=== PATIENT | male | born 1970 | race Caucasian/White ===

== ENCOUNTER 2022-10-25 09:46 | Outpatient (AMB) | payer OTHER, SELFPAY ==
[2022-10-25 09:48] VITALS: BP 104/62; PULSE 72; O2SAT 96; BMI 34.8
--- NOTE | 2022-10-25 09:48 | A.OFFVIS_ITS ---
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 Patient states that he has dyspnea with minimal exertion, orthopnea, some lower extremity edema, but no paroxysmal nocturnal dyspnea. Patient denies prior personal or family history of lying disease. He has no history of exposure to industrial dusts. [facility] Social History (Updated 10/25/22 @ 09:51 by Mahsa Lucas Charles) Patient Tobacco Use Status: Never used Tobacco Review of Systems Const Denies daytime sleepiness, Denies excessive sweating, Denies fatigue, Denies fever(s), Denies lethargy, Denies malaise, Denies night sweats, Denies snoring and Denies weight loss Eyes Denies blurry vision and Denies itchy eyes ENT Denies nasal congestion, Denies post nasal drip, Denies sinus pain, Denies sinus pressure and Denies other ( Thrush) Card Denies chest pain, Reports pedal edema, Denies dyspnea, Reports dyspnea on exertion, Reports orthopnea and Denies paroxysmal nocturnal dyspnea Resp Denies cough, Denies hemoptysis, Denies excessive phlegm production, Denies dyspnea, Reports dyspnea on exertion, Denies snoring and Denies wheezing GI Denies abdominal pain and Denies heartburn Musc Denies myalgias, Denies arthralgias and Denies joint swelling Skin/Breast Denies rash Neuro Denies memory loss and Denies seizure-like activity Psych Denies abnormal sleep pattern, Denies anxiety and Denies memory loss Endo Denies excessive sweating, Denies fatigue and Denies heat intolerance Say/Lymph Denies easy bruising Aller/Immun Denies itchy eyes, Denies seasonal rhinorrhea and Denies wheezing Physical Exam Vital Signs: Last Vital Signs Pulse 72 10/25/22 09:48 BP 104/62 10/25/22 09:48 Pulse Ox 96 10/25/22 09:48 Oxygen Delivery Method Room Air 10/25/22 09:48 BMI result Body Mass Index 34.8 Const General: no acute distress and alert Nutritional Appearance: obese Orientation/consciousness: Other orientation findings ( oriented) HEENT Head: Yes atraumatic Eyes General: appearance normal, both eyes and all related structures Sclerae: sclerae normal EOM: EOMs intact bilaterally Neck Neck: Yes supple Lymphatic: no lymphadenopathy noted Resp Effort & Inspection: normal respiratory effort and no use of accessory muscles Auscultation: clear to auscultation bilaterally Cardio Rate: regular rate Rhythm: regular rhythm Heart sounds: no gallops, no murmurs and no rubs Skin General skin exam: other ( warm) Extrem General: No clubbing, No cyanosis and Yes edema (1+ bilateral) Assessment & Plan Assessment & Plan (1) DO (dyspnea on exertion): Code(s): R06.09 - Other forms of dyspnea Plan: Unclear etiology, likely multifactorial with contribution from underlying cardiac, and deconditioning, and possible pulmonary component. Will obtain records from [facility] of prior testing. (2) COPD (chronic obstructive pulmonary disease): Code(s): J44.9 - Chronic obstructive pulmonary disease, unspecified Plan: Considering underlying smoking history may have underlying COPD. Will obtain full PFT. Low concern for possible pulmonary fibrosis as no note made on the most recent CT chest from 08/2022. Orders: Orders PFT pulmonary function test Today R06.09 - Other forms of dyspnea Coding Level of Care Code New Pt Level 4 (98265) Diagnoses DO (dyspnea on exertion) R06.09 COPD (chronic obstructive pulmonary disease) J44.9
== END 2022-10-25 10:16 | disposition home or self-care (01) ==
PROVIDERS: PCP Pediatrics; Visit Provider Internal Medicine Pulmonary Disease
DX: R06.09 Other forms of dyspnea (principal); J44.9 Chronic obstructive pulmonary disease, unspecified
CPT/HCPCS: 99204

== ENCOUNTER → 2022-10-25 09:46 | Outpatient (BNVA) | payer OTHER, SELFPAY | PROVIDERS: PCP Pediatrics; Visit Provider Internal Medicine Pulmonary Disease | DX: J44.9 Chronic obstructive pulmonary disease, unspecified (principal); R06.09 Other forms of dyspnea; Z87.891 Personal history of nicotine dependence | CPT/HCPCS: 99202 ==

== ENCOUNTER 2022-11-12 09:25 | Outpatient (REF) | payer OTHER, SELFPAY ==
--- NOTE | 2022-11-12 11:00 | PFT_ITS ---
Forced vital capacity 72%, FEV1 68%, FEV1/FVC ratio is 73. [id number] 65% and MVV 33%. Post bronchodilator therapy, there is no significant change. Total lung capacity 87%. Residual volume 139%. Diffusion capacity 59%. CONCLUSION: There is possible mild obstructive airway disorder with no significant response to bronchodilator therapy. Increased residual volume is suggestive of air trapping. Decreased diffusion capacity may be secondary to chronic obstructive pulmonary disease/pulmonary emphysema. There is marked decrease in MVV. This is most likely effort related and due to technical reason. Clinical correlation recommended. Wayne Hankins MD MSB/MODL / [id number]
== END 2022-11-12 09:26 | disposition home or self-care (01) ==
LOC: HO.RESP 09:25
PROVIDERS: PCP Pediatrics; Visit Provider Internal Medicine Pulmonary Disease
DX: R06.09 Other forms of dyspnea (principal)
CPT/HCPCS: 94010; 94727; 94729; 99212

== ENCOUNTER 2022-11-12 10:14 | Outpatient (AMB) | payer OTHER, SELFPAY ==
[2022-11-12 10:25] VITALS: BP 116/67; PULSE 74; O2SAT 98; BMI 34.8
--- NOTE | 2022-11-12 10:25 | A.OFFVIS_ITS ---
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 Patient states that he has dyspnea with minimal exertion, orthopnea, some lower extremity edema, but no paroxysmal nocturnal dyspnea. Patient denies prior personal or family history of lying disease. He has no history of exposure to industrial dusts. After the last office visit patient has completed his pulmonary function testing that shows decrease in diffusion capacity without restrictive pulmonary physiology. He denies any pulmonary related concerns at this time. [facility] Social History Patient Tobacco Use Status: Never used Tobacco Review of Systems Const Denies daytime sleepiness, Denies excessive sweating, Denies fatigue, Denies fever(s), Denies lethargy, Denies malaise, Denies night sweats, Denies snoring and Denies weight loss Eyes Denies blurry vision and Denies itchy eyes ENT Denies nasal congestion, Denies post nasal drip, Denies sinus pain, Denies sinus pressure and Denies other ( Thrush) Card Denies chest pain, Denies pedal edema, Denies dyspnea, Denies orthopnea and Denies paroxysmal nocturnal dyspnea Resp Denies cough, Denies hemoptysis, Denies excessive phlegm production, Denies dyspnea, Denies snoring and Denies wheezing GI Denies abdominal pain and Denies heartburn Musc Denies myalgias, Denies arthralgias and Denies joint swelling Skin/Breast Denies rash Neuro Denies memory loss and Denies seizure-like activity Psych Denies abnormal sleep pattern, Denies anxiety and Denies memory loss Endo Denies excessive sweating, Denies fatigue and Denies heat intolerance Say/Lymph Denies easy bruising Aller/Immun Denies itchy eyes, Denies seasonal rhinorrhea and Denies wheezing Physical Exam Vital Signs: Last Vital Signs Pulse 74 11/12/22 10:25 BP 116/67 11/12/22 10:25 Pulse Ox 98 11/12/22 10:25 Oxygen Delivery Method Room Air 11/12/22 10:25 BMI result Body Mass Index 34.8 Const General: no acute distress and alert Nutritional Appearance: obese Orientation/consciousness: Other orientation findings ( oriented) HEENT Head: Yes atraumatic Eyes General: appearance normal, both eyes and all related structures Sclerae: sclerae normal EOM: EOMs intact bilaterally Neck Neck: Yes supple Lymphatic: no lymphadenopathy noted Resp Effort & Inspection: normal respiratory effort and no use of accessory muscles Auscultation: clear to auscultation bilaterally Cardio Rate: regular rate Rhythm: regular rhythm Heart sounds: no gallops, no murmurs and no rubs Skin General skin exam: other ( warm) Extrem General: No clubbing, No cyanosis and No edema Assessment & Plan Assessment & Plan (1) Pulmonary emphysema: Code(s): J43.9 - Emphysema, unspecified Plan: Results of pulmonary function test reviewed, pulmonary emphysema without fixed obstruction. Will start on empiric Anoro. Medications: New Anoro Ellipta 62.5-25 mcg/actuation (umeclidinium-vilanterol) 1 inh inhalation DAILY 30 days 1 ea 6RF NS Coding Level of Care Code Est Pt Level 3 (23120) Diagnoses Pulmonary emphysema J43.9
== END 2022-11-12 11:01 | disposition home or self-care (01) ==
PROVIDERS: PCP Pediatrics; Visit Provider Internal Medicine Pulmonary Disease
DX: J43.9 Emphysema, unspecified (principal)
CPT/HCPCS: 94060; 94727; 94729; 99213

== ENCOUNTER 2024-11-07 10:20 | Outpatient (AMB) | payer OTHER, SELFPAY ==
[2024-11-07 10:22] VITALS: BP 127/62; PULSE 87; O2SAT 94; BMI 31.1
--- NOTE | 2024-11-07 10:22 | MHC.OFFVIS ---
Vital Signs 11/07/24 10:22 Height 6 ft 6 in Weight 269 lb BMI 31.1 BP 127/62 Blood Pressure Location Rt brachial Position Sitting Pulse 87 Pulse Source Pulse Oximeter Pulse Oximetry (%) 94 Oxygen Delivery Method Room Air Intake Visit Reasons: COPD Allergies amoxicillin (From AUGMENTIN) Allergy (Unknown, Verified 11/07/24 10:29) HIVES clavulanic acid (From AUGMENTIN) Allergy (Unknown, Verified 11/07/24 10:29) HIVES HPI HPI COPD: Details: 54-year-old gentleman, former approximately 20 pack-year smoker, quit 2017 with underlying history of Loyes-Diets syndrome (Marfan's variant) status post repair of aortic aneurysm and replacement of aortic valve in 2017, also AFib on amiodarone previously seen for pulmonary component to his dyspnea, lost to follow-up lost to use, now returns complain worsening dyspnea on exertion associated with chest pressure. Patient has been using Anoro and Combivent with reasonable control of his underlying COPD symptoms. [facility] Social History Patient Tobacco Use Status: Never used Tobacco Review of Systems Const Denies daytime sleepiness, Denies excessive sweating, Denies fatigue, Denies fever(s), Denies lethargy, Denies malaise, Denies night sweats, Denies snoring and Denies weight loss Eyes Denies blurry vision and Denies itchy eyes ENT Denies nasal congestion, Denies post nasal drip, Denies sinus pain, Denies sinus pressure and Denies other ( Thrush) Card Denies chest pain, Denies pedal edema, Denies dyspnea, Reports dyspnea on exertion, Denies orthopnea and Denies paroxysmal nocturnal dyspnea Resp Denies cough, Denies hemoptysis, Denies excessive phlegm production, Denies dyspnea, Reports dyspnea on exertion, Denies snoring and Denies wheezing GI Denies abdominal pain and Denies heartburn Musc Denies myalgias, Denies arthralgias and Denies joint swelling Skin/Breast Denies rash Neuro Denies memory loss and Denies seizure-like activity Psych Denies abnormal sleep pattern, Denies anxiety and Denies memory loss Endo Denies excessive sweating, Denies fatigue and Denies heat intolerance Say/Lymph Denies easy bruising Aller/Immun Denies itchy eyes, Denies seasonal rhinorrhea and Denies wheezing Physical Exam Vital Signs: Last Vital Signs Pulse 87 11/07/24 10:22 BP 127/62 11/07/24 10:22 Pulse Ox 94 11/07/24 10:22 Oxygen Delivery Method Room Air 11/07/24 10:22 BMI result Body Mass Index 31.1 Const General: no acute distress and alert Nutritional Appearance: not obese Orientation/consciousness: Other orientation findings ( oriented) HEENT Head: Yes atraumatic Eyes General: appearance normal, both eyes and all related structures Sclerae: sclerae normal EOM: EOMs intact bilaterally Neck Neck: Yes supple Lymphatic: no lymphadenopathy noted Resp Effort & Inspection: normal respiratory effort and no use of accessory muscles Auscultation: clear to auscultation bilaterally Cardio Rate: regular rate Rhythm: regular rhythm Heart sounds: no gallops, no murmurs and no rubs Skin General skin exam: other ( warm) Extrem General: No clubbing, No cyanosis and No edema Assessment & Plan Assessment & Plan (1) COPD (chronic obstructive pulmonary disease): Code(s): J44.9 - Chronic obstructive pulmonary disease, unspecified Category: Medical Plan: Controlled on current regimen of Anoro and Combivent. Continue current regimen. (2) DO (dyspnea on exertion): Code(s): R06.09 - Other forms of dyspnea Category: Medical Plan: Now appears to have cardiac component, will obtain 2D echocardiogram. Orders: Orders CA echo transthoracic complete Today R06.09 - Other forms of dyspnea Coding Level of Care Code Est Pt Level 4 (18190) Diagnoses COPD (chronic obstructive pulmonary disease) J44.9 DO (dyspnea on exertion) R06.09
== END 2024-11-07 10:49 | disposition home or self-care (01) ==
LOC: HO.HPS 10:21
PROVIDERS: PCP Pediatrics; Visit Provider Internal Medicine Pulmonary Disease
DX: J44.9 Chronic obstructive pulmonary disease, unspecified (principal); R06.09 Other forms of dyspnea
CPT/HCPCS: 99214

== ENCOUNTER → 2024-11-07 10:20 | Outpatient (BNVA) | payer OTHER, SELFPAY | PROVIDERS: PCP Pediatrics; Visit Provider Internal Medicine Pulmonary Disease | DX: J44.9 Chronic obstructive pulmonary disease, unspecified (principal); R06.09 Other forms of dyspnea; Q87.40 Marfan syndrome, unspecified | CPT/HCPCS: 99212 ==

== ENCOUNTER 2024-12-06 15:41 | Emergency (ER) | payer OTHER, SELFPAY ==
--- NOTE | 2024-12-06 | ECG_ITS ---
Test Reason : CP Blood Pressure : */* mmHG Vent. Rate : 72 BPM Atrial Rate : 72 BPM P-R Int : 170 ms QRS Dur : 92 ms QT Int : 406 ms P-R-T Axes : 55 36 52 degrees QTcB Int : 444 ms Sinus rhythm with Premature ventricular complexes Abnormal ECG When compared with ECG of 28-Oct-2016 12:34, Premature ventricular complexes are now Present Referred By: Generic ED Physician Electronically Signed By: TATE GRIMM MD
--- NOTE | ~2024-12-06 | XR_ITS ---
CLINICAL HISTORY: chest pain 1 view chest x-ray Comparison: None provided Findings: Two films were obtained. Hyperaerated lungs with crowding of the lung markings in the bilateral lower lobes can be seen with emphysema. No consolidation, pleural effusion or pneumothorax. Normal size heart. Median sternotomy. No acute fracture. IMPRESSION: No acute cardiopulmonary process. This document has been electronically signed by: Kaylah Yeh DO on 12/06/2024 17:35:51
[2024-12-06 15:54] VITALS: BP 132/74; PULSE 75; O2SAT 99
--- NOTE | 2024-12-06 16:07 | ED.CHESTPAIN ---
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 The pain was of gradual onset and started shortly after spending 2 days prior moving all of his home items from a [address] with his son. He denies feeling like he strained his muscles in any way as it does not hurt when he moves his arms in any way. He reports no association with food exertion or would positional changes. Reports having less exercise intolerance as he used to tolerate walking around the mall but now he can not. The pain does not wax and wane it is a constant ache. He denies any infectious symptoms such as fevers chills nasal congestion air hunger abdominal discomfort nausea or vomiting or diarrhea. He reports no changes to his appetite. He reports feeling under a great deal of stress due to his son moving to [place] and having to move twice in the last 8 months. His history of aortic valve replacement done at [facility] years ago. Patient uses a walker for long distance and a cane for short distances at baseline he denies any falls or trauma no paresthesias or weakness. He denies any associated back pain and has no symptoms. He does not feel dizzy or lightheaded. He is seen by Dr. Antony for pulmonology and was supposed to have a 3D echo done at outpatient this week but due to his car breaking down he was not able to go to it Dr. Tapia office called him back and told him to go to the ED. He does not feel like his inhaler helps. Denies wheezing or crushing pain. Last OV from Dr. Antony dated on 11/07/24. COPD controlled on Anoro and combivant. Thought potentially could be cardiac component to his DO and ordered the 2D echo. It has not been done yet. There are no prior ED visits as patient was established at [facility]. From [facility]: [facility] Cardiology record retrieved. Other PMH includes: Anxiety, ascending aortic aneurysm, atypical chest pain, CAD, chronic low back pain, dysphagia, GERD, heart murmur, history of kidney stones, HLD, hypertension, hypothyroidism, class 1 obesity, atrial septal defect, and spinal stenosis Meds: Anoro Ellipta 6.25 mcg per 25 mcg inhalation powder 1 puff daily, aspirin 81 mg tablet daily, gabapentin 300 mg capsule 1 capsule in the morning when capsular the afternoon acute 2 capsules at bedtime, enter gross 0.005% ophthalmic solution 1 drop each eye daily at bedtime, levothyroxine 175 mcg by mouth daily, Lipitor 80 mg tablet nightly, metoprolol 25 mg tablet extended release daily, pantoprazole 40 mg tablet daily, riboflavin 200 mg 2 times per day, sertraline 100 mg tablet daily, topiramate 50 mg tablet 1 in the morning and 2 tablets at night, vitamin D3 daily, warfarin 2.5 mg - 5mg daily depending on coumadin clinic ( pt reports he checks himself at home now) Had ablation for AFib. Is no longer on amiordarone. Allergies: Augmentin Imagin11/01/23 CXR: LUNGS AND PLEURA: Bibasilar atelectasis. Coarsening of the interstitial markings at the left lung base are similar to slightly increased from the prior exam. Probable trace bilateral pleural effusions. No pneumothorax. HEART, MEDIASTINUM AND ADRIEL: Mild prominence of the cardiac silhouette, unchanged. Postsurgical changes in the mediastinum following prior median sternotomy. Evidence of prior CABG and AVR. BONES AND SOFT TISSUES: No acute abnormality. Status post median sternotomy. IMPRESSION: 1. Probable trace bilateral pleural effusions. 2. Coarsening of the interstitial markings at the left lung base are similar to slightly increased from the prior exam. This is favored to be chronic, though is difficult to exclude a superimposed infectious consolidation. Clinical correlation should be made. EKG: on 12/13/23: Ventricular Rate: 60 BPM Atrial Rate: 60 BPM P-R Interval: 212 ms QRS Duration: 116 ms Q-T Interval: 470 ms QTC Calculation(Bazett): 470 ms P [place]: 57 degrees R [place]: 5 degrees T [place]: 59 degrees Sinus rhythm with sinus arrhythmia with 1st degree A-V block Otherwise normal ECG When compared with ECG of 12-DEC-2023 09:49, Sinus rhythm has replaced Atrial flutter ST no longer elevated in Inferior leads Confirmed by MARLIN AMEZQUITA MD ([id number]) on 12/13/2023 1:53:[address] CORONARY: IMPRESSION: Limited exam due to overall low signal to noise ratio. Left Main: Normal. Left Anterior Descending: There is a small calcified plaque at the proximal LAD causing less than 25% stenosis. Ramus Intermedius: A large branch with no definite high-grade stenosis. Left Circumflex Artery: Most of the hop[place] circumflex is probably chronically occluded. There is a venous graft from the ascending aorta joining an obtuse marginal. The graft is suboptimally seen due to increased image noise but probably patent. Beyond the touchdown the obtuse marginal is not well seen with no definite high-grade stenosis. Right Coronary Artery: No significant stenosis. Related Data Home Medications ?Medication ?Instructions ?Recorded ?Confirmed atorvastatin 80 mg tablet 80 mg PO DAILY 11/07/24 levothyroxine 150 mcg tablet 150 mcg PO QAM 11/07/24 sertraline 100 mg tablet 100 mg PO DAILY 11/07/24 topiramate 50 mg tablet 50 mg PO DAILY 11/07/24 warfarin 2.5 mg tablet 2.5 - 5 mg PO DAILY 11/07/24 Previous Rx's ?Medication ?Instructions ?Recorded Anoro Ellipta 62.5 mcg-25 1 inh inhalation DAILY 30 days #1 05/18/23 mcg/actuation powder for ea inhalation (umeclidinium-vilanterol) Allergies Allergy/AdvReac Type Severity Reaction Status Date / Time amoxicillin (From AUGMENTIN) Allergy Unknown HIVES Verified 12/06/24 16:12 clavulanic acid (From Allergy Unknown HIVES Verified 12/06/24 16:12 AUGMENTIN) Review of Systems Review of Systems: Yes all other systems are reviewed and are negative PMFSH Past Medical History Attestation statement: The following information was validated with the patient. Source: old records reviewed, obtained from family, nursing notes reviewed and other ([facility] portal, wrote into HPI.) Social History Social History Unable to assess alcohol history related to: Unknown Patient Tobacco Use Status: Never used Tobacco Smoked in Last 30 Days: No Use of substances other than those prescribed or required for medical reasons: Unknown Advance Directives: No Advance Directives Information Provided: No Physical Exam Exam: Exam: General: Appears in no acute distress, appears well nourished body habitus is obese, appears stated age. No septic or ill-appearing. Vitals reviewed normal, PMH/Social and Surgical hx reviewed including allergies and current medications. - reviewed for prior visits at [facility]. Head: Normocephalic, no obvious trauma or skin lesions noted. Eyes: EOMI, no scleral icterus ENMT: moist oral mucosa, teeth surgically absent no dentures Neck: trachea midline uvula is midline no trismus Cardiovascular: peripheral perfusion normal, Regular heart rate, regular rhythm, no peripheral edema, no friction rub Respiratory: no respiratory distress, lungs clear no chest wall tenderness negative cystitis anterior test no scapular winging no crepitus Abdomen: Protuberant nontender Extremities: warm and moving without difficulty Psych: Cooperative and calm Neuro: Alert and oriented. Vital Signs: Vital Signs: Last Vital Signs Temp 98 F 12/06/24 16:11 Pulse 73 12/06/24 16:11 Resp 18 12/06/24 16:11 BP 116/70 12/06/24 16:11 Pulse Ox 99 12/06/24 16:11 O2 Del Method Room Air 12/06/24 16:11 BMI result Body Mass Index 32.0 Medical Decision Making Medical Decision Making MDM Narrative: 54-year-old male reporting to the emergency department today for evaluation of chest pain that is not associated with exertion food or positional changes. Patient arrives via EMS he has normal stable vitals with a BP of 116/70 pulse is 73 respirations are 18 his oral temperature is 98 degrees F he is saturating 99% on room air. He does not appear to be in any acute distress. His chest wall is nontender. His pulses are equal and symmetric less concerning for aortic dissection he is A&O x4 with a GCS of 15. He has a cane to ambulate with a at baseline. No recent falls or trauma. A cardiac pulmonary workup was initiated. No clinical concern for a pulmonary embolism given that he has been on warfarin for several years now does not tachycardic or tachypneic and has no pleuritic pain. EKG showing 72 beats per minute with sinus rhythm with ventricular paced complexes, no malignant ischemia or arrhythmia noted. Prior [facility] EKG findings noted in HPI. Troponin is negative at less than 2.7 ACS can be ruled out his proBNP is less than 300 acute heart failure can be ruled out no metabolic or electrolyte imbalance no hepatobiliary disease or pancreatitis. Patient's INR is 2.1 we will update him. Patient's D-dimer is less than 150 PE can be ruled out. Also considered GERD however patient stated this is not what he feels and does not want to trial a GI cocktail. Differential Diagnosis Differential Diagnoses: The differential diagnosis associated with the presentation includes ACS HF PE PTX atypical chest pain costochondritis chest wall strain Admission/Observation Consideration of admission/observation: Escalation of care including admission/observation considered Patient would have been admitted to the hospital had his work up had any findings where hospital admission was appropriate and his clinical presentation warranted hospital admission. Lab Data MDM Lab Attestation statement: I reviewed the patient's lab results. 12/06/24 16:36 12/06/24 16:36 Labs: Lab Results 12/06/24 Range/Units 16:36 WBC 5.2 (4.8-10.8) X10*3/uL RBC 4.55 L (4.60-5.80) X10*6/uL Hgb 14.3 (14.0-18.0) g/dl Hct 42.6 (42.0-52.0) % MCV 93.6 (80.0-98.0) fL MCH 31.4 (27.0-33.0) pg MCHC 33.6 (31.0-36.0) g/dl RDW 12.9 (11.0-16.0) % Plt Count 119 L (160-400) X10*3/uL MPV 10.0 (9.4-12.4) fL Immature Gran % (Auto) 0.2 (0.0-0.4) % Neut % (Auto) 71.5 (45-73) % Lymph % (Auto) 15.5 L (20-40) % Ransom % (Auto) 8.8 (2-11) % Eos % (Auto) 2.9 (0-4) % Baso % (Auto) 1.1 (0-2) % Lymph # (Auto) 0.8 L (1.2-4.9) X10*3/uL Ransom # (Auto) 0.5 (0.1-1.2) X10*3/uL Eos # (Auto) 0.2 (0.0-0.4) X10*3/uL Baso # (Auto) 0.1 (0.0-0.2) X10*3/uL Abs Immat Gran (auto) 0.01 (0.00-0.03) X10*3/uL Absolute Neuts (auto) 3.8 (2.0-8.3) x10*3/uL Absolute Nucleated RBC 0.000 (0.0-0.012) X10*3/uL Nucleated RBC % (auto) 0.0 (0.0-0.2) /100WBC PT 24.3 H (10.9-12.4) SEC INR 2.1 H (0.9-1.1) D-Dimer High Sensitivty < 150 NG/ML Sodium 142 (135-145) mmol/L Potassium 4.3 (3.3-5.1) mmol/L Chloride 113 H (96-108) mmol/L Carbon Dioxide 24 (22-29) mmol/L Anion Gap 9 L (12-20) BUN 10 (9-16) mg/dL Creatinine 1.10 (0.5-1.4) mg/dL Estim Creat Clear Calc 112.7 Estimated GFR > 60 Random Glucose 106 (60-115) mg/dL Calcium 8.8 (8.4-10.2) mg/dL Magnesium 2.1 (1.6-2.6) mg/dL Total Bilirubin 0.4 (0.0-1.0) mg/dL AST 29 (5-37) U/L ALT 27 (0-40) U/L Alkaline Phosphatase 85 (39-117) U/L Troponin I High Sens < 2.7 (<3.5-35.0) ng/L NT-Pro-B Natriuret Pep 229.6 (<300) pg/mL Total Protein 6.9 (6.5-8.0) g/dL Albumin 4.3 (3.5-5.0) g/dL Lipase 50 (8-78) U/L Independent Interpretation I performed an independent interpretation of an: EKG and Plain X-Ray Interpretation: Ventricular paced rhythm -no malignant arrhythmia or ischemia. CXR normal- no widened mediastinum or acute masses no infiltrates. No PTX Radiology Impression Discussion of test interpretation with radiology: I have reviewed the radiologist's reading. External Record Review External record reviewed: Outpatient record, Prior outpatient labs, Prior outpatient radiology and Outside ED record Tests considered The following testing was considered but not selected: WOuld have considered CTA of chest had D dimer been elevated. Chronic Conditions Patient?s care impacted by: Other Social Determinants Patient?s care significantly limited by Social Determinants of Health including: Problems related to primary support group and Other Social Determinant of Health Critical Care Time Critical Care Time Critical Care Time: No Discharge Plan Discharge Clinical Impression: Atypical chest pain Patient Disposition: Home, Self-Care Instructions: Chest Pain (ED) Additional Instructions: You were seen in the emergency department for chest pain that you have had over the past week. While in the emergency department you had a reassuring workup that was able to rule out acute coronary syndrome, pulmonary embolism, pneumothorax, heart failure, myocarditis, pericarditis, infection and mass. There is no life-threatening causes of your pain detected today. Please continue to follow up outpatient with Dr. Antony and reschedule your 2D echo. Activity as tolerated For any worsening shortness of breath or chest pain please return to the emergency department/dial 911. Prescriptions: No Action Anoro Ellipta 62.5-25 mcg/actuation blister with device 1 inh inhalation DAILY 30 Days Qty: 1 6RF atorvastatin 80 mg tablet 80 mg PO DAILY sertraline 100 mg tablet 100 mg PO DAILY warfarin 2.5 mg tablet 2.5 - 5 mg PO DAILY levothyroxine 150 mcg tablet 150 mcg PO QAM topiramate 50 mg tablet 50 mg PO DAILY Referrals: Marcus Ferreira DO [Primary Care Provider, Family Practice] Referral Note: ED follow up Clinical Impression: Atypical chest pain Nikolai Antony MD [Physician, Pulmonology] Clinical Impression: Atypical chest pain Print Language: Slovak
[2024-12-06 16:11] VITALS: BP 116/70; PULSE 73; RESP 18; TEMP 36.6; O2SAT 99; BMI 32.0
[2024-12-06 16:41] LABS: MANUAL DIFF FLAG NO
[2024-12-06 16:43] LABS: Imm Gran Abs Auto 0.01 X10*3/uL (0.00-0.03); Imm Gran Pct Auto 0.2 % (0.0-0.4); Mean Corpuscular HGB Conc 33.6 g/dl (31.0-36.0); NRBC Abs Auto 0.000 X10*3/uL (0.0-0.012); NRBC Pct Auto 0.0 /100WBC (0.0-0.2); PLT CLUMP 1; SCAN SMEAR FLAG 1
[2024-12-06 16:44] LABS: Hematocrit 42.6 % (42.0-52.0); Hemoglobin 14.3 g/dl (14.0-18.0); Lymphocytes Absolute Auto 0.8 X10*3/uL (1.2-4.9); Mean Corpuscular Hemoglobin 31.4 pg (27.0-33.0); Mean Corpuscular Volume 93.6 fL (80.0-98.0); Red Blood Count 4.55 X10*6/uL (4.60-5.80)
[2024-12-06 16:48] LABS: INTERNATIONAL NORM RATIO 2.1 (0.9-1.1); Prothrombin Time 24.3 SEC (10.9-12.4)
[2024-12-06 16:50] LABS: Platelet Count 119 X10*3/uL (160-400); White Blood Count 5.2 X10*3/uL (4.8-10.8)
[2024-12-06 16:59] LABS: Alanine Aminotransferase 27 U/L (0-40); Albumin Level 4.3 g/dL (3.5-5.0); Alkaline Phosphatase 85 U/L (39-117); Anion Gap 9 (12-20); Aspartate Amino Transferase 29 U/L (5-37); Blood Urea Nitrogen 10 mg/dL (9-16); Calcium 8.8 mg/dL (8.4-10.2); Carbon Dioxide 24 mmol/L (22-29); Chloride 113 mmol/L (96-108); Creatinine Clr Calc Pharmacy 112.7; Estimated Glomerular Filt Rate > 60; Lipase 50 U/L (8-78); Magnesium 2.1 mg/dL (1.6-2.6); Potassium 4.3 mmol/L (3.3-5.1); Sodium 142 mmol/L (135-145); Total Protein 6.9 g/dL (6.5-8.0)
[2024-12-06 17:02] LABS: NT Pro B Type Natriuretic Pept 229.6 pg/mL (<300)
[2024-12-06 17:03] LABS: D Dimer High Sensitivity < 150 NG/ML
[2024-12-06 17:06] LABS: Troponin-I High Sensitivity < 2.7 ng/L (<3.5-35.0)
[2024-12-06 18:50] VITALS: BP 116/70; PULSE 73; RESP 18; TEMP 36.6; O2SAT 99
--- OUTSIDE RECORDS SUMMARY | 2024-12-06 19:34 | XMS_ITS | Data Portability ---
Author Organization [facility], Main Office Address [address] [place] [id number] Care Team Providers Care Actionscript Developer Name Role Phone MARCUS PRIETO Primary Care Provider [phone] SOHAM CAMPOS Pin Drafting Machine Operator [facility] Pamphlet Distributor [facility] Sleep Medi cine ANDRE SMITH Neurologist ALISON JANSEN Orthopedic Surgeon ANGEL MI Neurosurgeon [phone] [facility] Phys. Med. & Rehab RODRI PERERA Legal Practice Manager ANA ROSA BUCKLEY Legal Practice Manager [phone] THA ALEJANDRO Pamphlet Distributor Assessment Encounter Date Assessment Date Assessment LastModified by Organization Details LastModified Time 02/18/2023 02/18/2023 Discussed with patient the signs/symptoms warranted for a return to office visit and/or an ER visit. Patient understood and agreed with the plan. [place] Not available 02/18/2023 12:59:41 10/05/2024 10/05/2024 This service was provided using telemedicine. Patient consented to telephone visit Patient was located at home in the [facility]. Provider was located in the office. No other persons participated in the telemedicine visit except for the patient unless otherwise indicated here. Total time of visit was 30 minutes. german Not available 10/05/2024 15:37:53 Plan of Treatment Reminders Order Date Submit Date Provider Last Modified By Organization Details Last Modified Time Details Appointments PE EST 2025 10:15A M Marcus Prieto MD Not available Not available Not available Lab vitami n B12, serum 2024 025 AFSHIN [facility] (Centralized Electronic Ordering - All Locations), Patient Can Go To The Location Of Their Choice, 10/09/2024 06:07:30 vitami n D, 25-hyd ida, total, serum 2024 025 AFSHIN [facility] (Centralized Electronic Ordering - All Locations), Patient Can Go To The Location Of Their Choice, 10/09/2024 06:07:29 CBC 2024 025 AFSHIN [facility] (Centralized Electronic Ordering - All Locations), Patient Can Go To The Location Of Their Choice, 10/09/2024 06:07:28 lipid panel, serum 2024 025 AFSHIN [facility] (Centralized Electronic Ordering - All Locations), Patient Can Go To The Location Of Their Choice, 10/09/2024 06:07:29 CMP, serum or plasma 2024 025 AFSHIN [facility] (Centralized Electronic Ordering - All Locations), Patient Can Go To The Location Of Their Choice, 10/09/2024 06:07:28 TSH, ultra- sensit mika, serum 2024 025 AFSHIN [facility] (Centralized Electronic Ordering - All Locations), Patient Can Go To The Location Of Their Choice, 10/09/2024 06:07:30 vitami n D, 25-hyd ida, total, serum 2023 024 AFSHIN [facility] (Centralized Electronic Ordering - All Locations), Patient Can Go To The Location Of Their Choice, 10/26/2023 06:09:07 TSH, ultra- sensit mika, serum 2023 024 AFSHIN [facility] (Centralized Electronic Ordering - All Locations), Patient Can Go To The Location Of Their Choice, 10/26/2023 06:09:07 lipid panel, serum 2023 024 AFSHIN [facility] (Centralized Electronic Ordering - All Locations), Patient Can Go To The Location Of Their Choice, 10/26/2023 06:09:06 CMP, serum or plasma 2023 024 AFSHIN [facility] (Centralized Electronic Ordering - All Locations), Patient Can Go To The Location Of Their Choice, 10/26/2023 06:09:05 PTH (parat hyroid hormon e), intact , serum or plasma 2023 024 AFSHIN [facility] (Centralized Electronic Ordering - All Locations), Patient Can Go To The Location Of Their Choice, 05/10/2023 10:06:32 vitami n D, 25-hyd ida, total, serum 2023 024 AFSHIN [facility] (Centralized Electronic Ordering - All Locations), Patient Can Go To The Location Of Their Choice, 05/10/2023 10:06:31 CBC w/ auto diff 2023 024 AFSHIN [facility] (Centralized Electronic Ordering - All Locations), Patient Can Go To The Location Of Their Choice, 05/10/2023 10:06:30 TSH + free T4, serum 2023 024 AFSHIN [facility] (Centralized Electronic Ordering - All Locations), Patient Can Go To The Location Of Their Choice, 05/10/2023 10:06:30 PTH (parat hyroid hormon e), intact , serum or plasma 2022 023 AFSHIN [facility], [address], [address], [place], [address], 11/09/2022 17:49:37 TSH, serum or plasma 2022 023 AFSHIN [facility], [address], [address], [place], [address], 11/09/2022 16:27:32 CBC w/ auto diff 2022 023 AFSHIN [facility], [address], [address], [place], [address], 11/09/2022 16:51:34 LATRICIA (antin uclear antibo dies) screen , serum 2022 023 AFSHIN [facility], [address], [address], [place], [address], 11/11/2022 23:07:15 C3 (compl ement) , serum or plasma 2022 023 AFSHIN [facility], [address], [address], [place], [address], 11/09/2022 17:07:22 C4 (compl ement) , serum or plasma 2022 023 AFSHIN [facility], [address], [address], [place], [address], 11/09/2022 17:07:24 ESR (eryth rocyte sedime ntatio n rate), blood 2022 023 AFSHIN [facility], [address], [address], [place], [address], 11/09/2022 17:03:30 C-reac tive protei n, quanti tative , serum or plasma 2022 023 AFSHIN [facility], [address], [address], [place], [address], 11/09/2022 17:07:26 PSA, serum or plasma - Screen ing 2022 023 AFSHIN [facility], [address], [address], [place], [address], 11/09/2022 16:27:30 Referral neurol ogical surgeo n referr al - For f/u on cervic al spine fusion 2023 024 sosa Mi MD, [address] [place] [address] Dr, [address], [place], [address], 04/21/2024 08:43:24 physic al medici ne and rehabi litati on referr al - for evalua tion of balanc e issue in pt with h/o cervic al spine stenos is. 2023 024 raúl [facility], [address] [place] [address], [address], 05/31/2023 13:28:11 gastro entero logist referr al - Establ ished Needs colon cancer screen ing 2023 024 ATHENAFAX [facility], [address] [place] [address], [address], 05/09/2023 11:45:35 nutrit ionist /dieti jeanette referr al 2023 024 raúl Not available 05/09/2023 11:11:43 physic al therap ist referr al - cervic al radicu lopath y 2023 024 [email or web address] [facility], [address] [place] [address], [address], 2023 09:38:30 Procedures colono scopy screen ing (PROC) 2023 024 raúl In-Office Order, Internal Use Only DO Not Attach Compendium DO Not Attach Compendium, Do Not Delete/merge, [id number] 05/09/2023 11:08:42 Surgeries None record ed. Imaging US, thyroi d - rule out nodule 2022 023 raúl [facility], [address] [place] [address], [address], 11/16/2022 09:50:56 Medication Orders cholec alcife rol (vitam in D3) 50 mcg (2,000 unit) capsul e 2023 024 AFSHIN Not available 10/24/2023 09:12:50 topira mate 50 mg tablet 2023 024 AFSHIN Not available 10/24/2023 09:12:59 topira mate 50 mg tablet 2022 023 awychowski Not available 12/07/2022 08:39:49 gabape ntin 300 mg capsul e 2022 023 AFSHIN Not available 11/08/2022 12:20:21 Patient TargetsNo targets recorded. Patient Instructions Encounter Date Encounter Id Patient Instructions Last Modified By Organization Details Last Modified Time 11/08/2022 [id number] thyroid nodules: care instructions awychowski Not available 11/08/2022 13:16:35 Prostate Cancer Screening awychowski Not available 11/08/2022 12:20:19 02/18/2023 [id number] At [facility] follow up visit, all current and discharge medications (OTC, herbal therapies, supplements) reviewed and reconciled with patient and or caregiver, including potential side effects, drug interactions, instructions, and the consequences of not taking medication. Reviewed potential barriers to medication adherence, such as side effects from medication or cost of medication. [email or web address] Not available 02/18/2023 12:54:57 05/09/2023 [id number] high cholesterol: care instructions awychowski Not available 05/27/2023 09:23:05 chronic obstructive pulmonary disease (COPD): care instructions awychowski Not available 05/09/2023 10:34:37 learning about copd and how to prevent lung infections awychowski Not available 05/09/2023 10:34:38 hyperparathyroid ism: care instructions awychowski Not available 05/09/2023 10:34:37 parathyroidectom y: before your surgery awychowski Not available 05/09/2023 10:34:37 thrombocytopenia : care instructions awychowski Not available 05/09/2023 10:34:37 learning about colon cancer awychowski Not available 05/09/2023 10:34:37 hypothyroidism: care instructions awychowski Not available 05/09/2023 10:34:36 Starting a Weight-Loss Plan: Care Instructions awychowski Not available 05/09/2023 10:34:37 Nutrition Referral and Weight Management Follow-up Information awychowski Not available 05/09/2023 10:34:37 When You Want to Lose Weight: Care Instructions nbarrows Not available 05/27/2023 13:45:26 10/24/2023 [id number] high cholesterol: care instructions awychowski Not available 10/24/2023 09:12:45 10/05/2024 [id number] high cholesterol: care instructions awychowski Not available 10/05/2024 15:39:03 hypothyroidism: care instructions awychowski Not available 10/05/2024 15:39:03 Reason for Referral Physical Therapist Referral for Cervical radiculopathy cervical radiculopathy Referring Physician: Roxie Phipps [facility], Encounter Date: 02/18/2023 Physical Medicine And Rehabi litation Referral for Impairment of balance for evaluation of balance issue in pt with h/o cervical spine stenosis. Referring Physician: Marcus Prieto [facility], Encounter Date: 05/09/2023 Spouter/dietitian Refer ral for Body mass index 30+ - obesity Referring Physician: Marcus Prieto [facility], Encounter Date: 05/09/2023 Personal Injury Legal Assistant Referral for Screening for malignant neoplasm of colon Established Needs colon cancer screening Referring Physician: Marcus Prieto [facility], Encounter Date: 05/09/2023 Neurological Surgeon Referra l for History of cervical spine fusion For f/u on cervical spine fusion Referring Physician: Marcus Prieto [facility], Encounter Date: 10/24/2023 Results Created Date Observation Date Name Description Value Unit Range Abnormal Flag Note LastModifiedBy Organization Detail LastModifiedTime 11/10/1911/09/2022 PSA SCREE N PSA 0.6 NG/mL (0-4) TEST PERFO RMED USING THE MAHAMED ELECT MAHAMED MILLU Smart Lunches CENCE TOTAL PSA ASSAY . PSA VALUE S OBTAI FAITH WITH OTHER ASSAY METHO DS OR KITS CANNO T BE USED INTER FAJARDO EABLY . Not Available [facility] (Centralized Electronic Ordering - All Locations) Patient Can Go To The Location Of Their Choice, [id number] 11/09/2022 16:27:30 11/10/1911/09/2022 TSH WITH REFLE X TO FT4 TSH 8.89 uIU/m L (0.4-4 .2) high Not Available [facility] (Centralized Electronic Ordering - All Locations) Patient Can Go To The Location Of Their Choice, 11/09/2022 16:27:32 11/10/1911/09/2022 COMPL ETE CBC WITH DIFF WBC 5.4 K/mm3 (4.0-1 1.0) Not Available [facility] (Centralized Electronic Ordering - All Locations) Patient Can Go To The Location Of Their Choice, 11/09/2022 16:51:34 11/10/1911/09/2022 COMPL ETE CBC WITH DIFF RBC 4.65 M/mm3 (4.70- 6.10) low Not Available [facility] (Centralized Electronic Ordering - All Locations) Patient Can Go To The Location Of Their Choice, 11/09/2022 16:51:34 11/10/1911/09/2022 COMPL ETE CBC WITH DIFF HGB 14.4 gm/dL (13.7- 17.1) Not Available [facility] (Centralized Electronic Ordering - All Locations) Patient Can Go To The Location Of Their Choice, 11/09/2022 16:51:34 11/10/1911/09/2022 COMPL ETE CBC WITH DIFF HCT 44.8 % (40.5- 50.0) Not Available [facility] (Centralized Electronic Ordering - All Locations) Patient Can Go To The Location Of Their Choice, 11/09/2022 16:51:34 11/10/1911/09/2022 COMPL ETE CBC WITH DIFF MCV 96.3 fL (80.0- 94.0) high Not Available [facility] (Centralized Electronic Ordering - All Locations) Patient Can Go To The Location Of Their Choice, 11/09/2022 16:51:34 11/10/1911/09/2022 COMPL ETE CBC WITH DIFF MCH 31.0 pg (27.0- 34.0) Not Available [facility] (Centralized Electronic Ordering - All Locations) Patient Can Go To The Location Of Their Choice, 11/09/2022 16:51:34 11/10/1911/09/2022 COMPL ETE CBC WITH DIFF MCHC 32.1 g/dL (33.0- 37.0) low Not Available [facility] (Centralized Electronic Ordering - All Locations) Patient Can Go To The Location Of Their Choice, 11/09/2022 16:51:34 11/10/1911/09/2022 COMPL ETE CBC WITH DIFF plt 142 K/mm3 (150-4 60) low Not Available [facility] (Centralized Electronic Ordering - All Locations) Patient Can Go To The Location Of Their Choice, 11/09/2022 16:51:34 11/10/1911/09/2022 COMPL ETE CBC WITH DIFF RDW-SD 52.7 fL (<47.0 ) high Not Available [facility] (Centralized Electronic Ordering - All Locations) Patient Can Go To The Location Of Their Choice, 11/09/2022 16:51:34 11/10/1911/09/2022 COMPL ETE CBC WITH DIFF MPV 10.1 fL (9.4-1 2.4) Not Available [facility] (Centralized Electronic Ordering - All Locations) Patient Can Go To The Location Of Their Choice, 11/09/2022 16:51:34 11/10/1911/09/2022 COMPL ETE CBC WITH DIFF automated NRBC 0.0 #/100 _WBC' s Not Available [facility] (Centralized Electronic Ordering - All Locations) Patient Can Go To The Location Of Their Choice, 11/09/2022 16:51:34 11/10/1911/09/2022 COMPL ETE CBC WITH DIFF abs. NRBC 0.0 K/mm3 Not Available [facility] (Centralized Electronic Ordering - All Locations) Patient Can Go To The Location Of Their Choice, 11/09/2022 16:51:34 11/10/1911/09/2022 COMPL ETE CBC WITH DIFF neut # 3.9 K/mm3 (1.3-7 .0) Not Available [facility] (Centralized Electronic Ordering - All Locations) Patient Can Go To The Location Of Their Choice, 11/09/2022 16:51:34 11/10/1911/09/2022 COMPL ETE CBC WITH DIFF lymph # 0.8 K/mm3 (0.8-3 .1) Not Available [facility] (Centralized Electronic Ordering - All Locations) Patient Can Go To The Location Of Their Choice, 11/09/2022 16:51:34 11/10/1911/09/2022 COMPL ETE CBC WITH DIFF mono# 0.4 K/mm3 (0.4-1 .3) Not Available [facility] (Centralized Electronic Ordering - All Locations) Patient Can Go To The Location Of Their Choice, 11/09/2022 16:51:34 11/10/1911/09/2022 COMPL ETE CBC WITH DIFF eo # 0.2 K/mm3 (0.0-0 .4) Not Available [facility] (Centralized Electronic Ordering - All Locations) Patient Can Go To The Location Of Their Choice, 11/09/2022 16:51:34 11/10/1911/09/2022 COMPL ETE CBC WITH DIFF baso # 0.1 K/mm3 (0.0-0 .1) Not Available [facility] (Centralized Electronic Ordering - All Locations) Patient Can Go To The Location Of Their Choice, 11/09/2022 16:51:34 11/10/1911/09/2022 COMPL ETE CBC WITH DIFF abs. imm gran 0.0 K/mm3 Not Available [facility] ([facility] Ordering - All Locations) Patient Can Go To The Location Of Their Choice, 11/09/2022 16:51:34 11/10/1911/09/2022 COMPL ETE CBC WITH DIFF neut 72.3 % (44-76 ) Not Available [facility] (Centralized Electronic Ordering - All Locations) Patient Can Go To The Location Of Their Choice, 11/09/2022 16:51:34 11/10/1911/09/2022 COMPL ETE CBC WITH DIFF lymph 14.8 % (15-43 ) low Not Available [facility] (Centralized Electronic Ordering - All Locations) Patient Can Go To The Location Of Their Choice, 11/09/2022 16:51:34 11/10/1911/09/2022 COMPL ETE CBC WITH DIFF monocyte 8.2 % (4.5-1 0.5) Not Available [facility] (Centralized Electronic Ordering - All Locations) Patient Can Go To The Location Of Their Choice, 11/09/2022 16:51:34 11/10/1911/09/2022 COMPL ETE CBC WITH DIFF eo 3.2 % (0-6) Not Available [facility] (Centralized Electronic Ordering - All Locations) Patient Can Go To The Location Of Their Choice, 11/09/2022 16:51:34 11/10/19 23 11/09/2022 COMPL ETE CBC WITH DIFF baso 1.1 % (0-2) Not Available [facility] (Centralized Electronic Ordering - All Locations) Patient Can Go To The Location Of Their Choice, 11/09/2022 16:51:34 11/10/19 23 11/09/2022 COMPL ETE CBC WITH DIFF imm gran 0.4 % Not Available [facility] (Centralized Electronic Ordering - All Locations) Patient Can Go To The Location Of Their Choice, 11/09/2022 16:51:34 11/10/1911/09/2022 FREE T4 free T4 1.61 NG/dL (0.70- 1.80) Not Available [facility] ([facility]ized Electronic Ordering - All Locations) Patient Can Go To The Location Of Their Choice, 11/09/2022 16:57:11 11/10/1911/09/2022 SEDIM ENTAT ION RATE, AUTOM ATED sedimentatio n rate,automat ed 13 mm/HR (0-15) Not Available [facility] ([facility] Ordering - All Locations) Patient Can Go To The Location Of Their Choice, 11/09/2022 17:03:30 11/10/1911/09/2022 COMPL EMENT C3 complement C3 162 mg/dL (90-18 0) Not Available [facility] (Centralized Electronic Ordering - All Locations) Patient Can Go To The Location Of Their Choice, 11/09/2022 17:07:22 11/10/1911/09/2022 COMPL EMENT C4 complement C4 26 mg/dL (10-40 ) Not Available [facility] ([facility]ized Electronic Ordering - All Locations) Patient Can Go To The Location Of Their Choice, 11/09/2022 17:07:23 11/10/19 23 11/09/2022 COMPR EHENS MIKA METAB OLIC PANL glucose 90 mg/dL (70-99 ) Not Available [facility] (Centralized Electronic Ordering - All Locations) Patient Can Go To The Location Of Their Choice, 11/09/2022 17:07:11/10/1911/09/2022 COMPR EHENS MIKA METAB OLIC PANL BUN 12 mg/dL (6-20) Not Available [facility] ([facility]ized [facility] Ordering - All Locations) Patient Can Go To The Location Of Their Choice, 11/09/2022 17:07:11/10/1911/09/2022 COMPR EHENS MIKA METAB OLIC PANL creatinine 1.2 mg/dL (0.7-1 .2) Not Available [facility] ([facility]ized Electronic Ordering - All Locations) Patient Can Go To The Location Of Their Choice, 11/09/2022 17:07:11/10/1911/09/2022 COMPR EHENS MIKA METAB OLIC PANL sodium 138 mmol/ L (133-1 45) Not Available [facility] (Centralized Electronic Ordering - All Locations) Patient Can Go To The Location Of Their Choice, 11/09/2022 17:07:11/10/1911/09/2022 COMPR EHENS MIKA METAB OLIC PANL potassium 4.4 mmol/ L (3.6-5 .2) Not Available [facility] (Centralized Electronic Ordering - All Locations) Patient Can Go To The Location Of Their Choice, 11/09/2022 17:07:11/10/1911/09/2022 COMPR EHENS MIKA METAB OLIC PANL chloride 108 mmol/ L (98-10 7) high Not Available [facility] ([facility]ized [facility] Ordering - All Locations) Patient Can Go To The Location Of Their Choice, 11/09/2022 17:07:11/10/1911/09/2022 COMPR EHENS MIKA METAB OLIC PANL bicarbonate 20 mmol/ L (22-29 ) low Not Available [facility] ([facility] Ordering - All Locations) Patient Can Go To The Location Of Their Choice, 11/09/2022 17:07:11/10/1911/09/2022 COMPR EHENS MIKA METAB OLIC PANL anion gap 10 (4-17) Not Available [facility] ([facility]ized [facility] Ordering - All Locations) Patient Can Go To The Location Of Their Choice, 11/09/2022 17:07:11/10/1911/09/2022 COMPR EHENS MIKA METAB OLIC PANL albumin 4.5 gm/dL (3.4-4 .8) Not Available [facility] ([facility]ized Electronic Ordering - All Locations) Patient Can Go To The Location Of Their Choice, 11/09/2022 17:07:11/10/1911/09/2022 COMPR EHENS MIKA METAB OLIC PANL calcium 9.4 mg/dL (8.6-1 0.5) Not Available [facility] ([facility]ized Electronic Ordering - All Locations) Patient Can Go To The Location Of Their Choice, 11/09/2022 17:07:11/10/1911/09/2022 COMPR EHENS MIKA METAB OLIC PANL bilirubin,to david 0.6 mg/dL (0-1.2 ) Not Available [facility] ([facility]ized [facility] Ordering - All Locations) Patient Can Go To The Location Of Their Choice, 11/09/2022 17:07:11/10/1911/09/2022 COMPR EHENS MIKA METAB OLIC PANL total protein 6.8 gm/dL (6.2-8 .2) Not Available [facility] ([facility]ized Electronic Ordering - All Locations) Patient Can Go To The Location Of Their Choice, 11/09/2022 17:07:11/10/1911/09/2022 COMPR EHENS MIKA METAB OLIC PANL Ag ratio 2.0 Not Available [facility] ([facility]ized Electronic Ordering - All Locations) Patient Can Go To The Location Of Their Choice, 11/09/2022 17:07:11/10/1911/09/2022 COMPR EHENS MIKA METAB OLIC PANL AST 38 U/L (0-40) Not Available [facility] ([facility]ized [facility] Ordering - All Locations) Patient Can Go To The Location Of Their Choice, 11/09/2022 17:07:11/10/1911/09/2022 COMPR EHENS MIKA METAB OLIC PANL alk phos 79 U/L (40-12 9) Not Available [facility] ([facility] Ordering - All Locations) Patient Can Go To The Location Of Their Choice, 11/09/2022 17:07:25 11/10/1911/09/2022 COMPR EHENS MIKA METAB OLIC PANL ALT 31 U/L (0-41) Not Available [facility] ([facility]ized [facility] Ordering - All Locations) Patient Can Go To The Location Of Their Choice, 11/09/2022 17:07:25 11/10/1911/09/2022 COMPR EHENS MIKA METAB OLIC PANL estimated GFR creatinine 73 mL/mi n/1.7 3_M2 Creat inine based estim ated glome rular filtr ation (eGFR ) in adult s is calcu lated using the Natio nal Kidne y Found ation recom clayton d 2020 CKD-E PI equat ion. Estim ates GFR from serum creat inine , age and sex. Not Available [facility] ([facility]ized Electronic Ordering - All Locations) Patient Can Go To The Location Of Their Choice, 11/09/2022 17:07:25 11/10/1911/09/2022 C-KANU CTIVE PROTE IN C-reactive protein <0.3 mg/dL (0-0.5 ) Not Available [facility] ([facility]ized [facility] Ordering - All Locations) Patient Can Go To The Location Of Their Choice, 11/09/2022 17:07:11/10/1911/09/2022 LIPID PANEL cholesterol, total 154 mg/dL (<200) Not Available [facility] ([facility] Order[facility] - All Locations) Patient Can Go To The Location Of Their Choice, 11/09/2022 17:07:11/10/1911/09/2022 LIPID PANEL triglyceride 152 mg/dL (<150) high Not Available [facility] ([facility] Order[facility] - [facility] Locations) Patient Can Go To The Location Of Their Choice, 11/09/2022 17:07:27 11/10/1911/09/2022 LIPID PANEL HDL chol 35 mg/dL (>39) low Not Available [facility] ([facility]ized Electronic Ordering - All Locations) Patient Can Go To The Location Of Their Choice, 11/09/2022 17:07:27 11/10/1911/09/2022 LIPID PANEL LDL cholesterol, calculated 89 mg/dL (0-130 ) Not Available [facility] ([facility]ized Electronic Ordering - All Locations) Patient Can Go To The Location Of Their Choice, 11/09/2022 17:07:27 11/10/1911/09/2022 LIPID PANEL non HDL cholesterol (calc) 119 mg/dL (<160) Not Available [facility] ([facility] Ordering - All Locations) Patient Can Go To The Location Of Their Choice, 11/09/2022 17:07:27 11/10/1911/09/2022 PTH, INTAC T PTH, intact 95 pg/mL (15-65 ) high Not Available [facility] ([facility]ized Electronic Ordering - All Locations) Patient Can Go To The Location Of Their Choice, 11/09/2022 17:49:37 11/10/1911/11/2022 ANTI- NUCLE AR ANTIB TERRELL SCREE N anti-nuclear antibody screen NEGATI VE (NOTE ) Negat mika <1:80 Borde rline 1:80 Posit mika >1:80 ICAP nomen yaa re: AC-0 For more infor taco n about Hep-2 cell patte rns use ANApa ttern s.org , the offic cary abreu for the Inter natio nal Conse nsus on Antin uclea r Antib terrell (LATRICIA) Patte rns ([facility] ). Test perfo rmed by [facility], [address], [place] [address] Not Available [facility] (Centralized Electronic Ordering - All Locations) Patient Can Go To The Location Of Their Choice, 11/11/2022 23:07:15 05/09/1905/10/2023 TSH+F REE T4 TSH 4.730 uIU/m L 0.450- 4.500 above high normal Not Available [facility] ([facility]) [address] [facility], [place], [address], 05/10/2023 10:06:29 05/09/19 24 05/10/2023 TSH+F REE T4 T4,free(dire ct) 1.40 NG/dL 0.82-1 .77 Not Available [facility] ([facility]) [address] [facility], [place], [address], 05/10/2023 10:06:29 05/09/19 24 05/10/2023 CBC WITH DIFFE RENTI AL/PL ATELE T WBC 6.1 x10e3 /uL 3.4-10 .8 Not Available [facility] ([facility]) [address] [facility], [place], [address], 05/10/2023 10:06:30 05/09/19 24 05/10/2023 CBC WITH DIFFE RENTI AL/PL ATELE T RBC 4.82 x10e6 /uL 4.14-5 .80 Not Available [facility] ([facility]) [address] [facility], [place], [address], 05/10/2023 10:06:30 05/09/19 24 05/10/2023 CBC WITH DIFFE RENTI AL/PL ATELE T hemoglobin 14.9 g/dL 13.0-1 7.7 Not Available [facility] ([facility]) [address] [facility], [place], [address], 05/10/2023 10:06:30 05/09/19 24 05/10/2023 CBC WITH DIFFE RENTI AL/PL ATELE T hematocrit 45.2 % 37.5-5 1.0 Not Available [facility] ([facility]) [address] [facility], [place], [address], 05/10/2023 10:06:30 05/09/19 24 05/10/2023 CBC WITH DIFFE RENTI AL/PL ATELE T MCV 94 fL 79-97 Not Available [facility] ([facility]) [address] [facility], [place], [address], 05/10/2023 10:06:30 05/09/19 24 05/10/2023 CBC WITH DIFFE RENTI AL/PL ATELE T MCH 30.9 pg 26.6-3 3.0 Not Available [facility] ([facility]) [address] [facility], [place], [address], 05/10/2023 10:06:30 05/09/19 24 05/10/2023 CBC WITH DIFFE RENTI AL/PL ATELE T MCHC 33.0 g/dL 31.5-3 5.7 Not Available [facility] ([facility]) [address] [facility], [place], [address], 05/10/2023 10:06:30 05/09/19 24 05/10/2023 CBC WITH DIFFE RENTI AL/PL ATELE T RDW 14.2 % 11.6-1 5.4 Not Available [facility] ([facility]) [address] [facility], [place], [address], 05/10/2023 10:06:30 05/09/19 24 05/10/2023 CBC WITH DIFFE RENTI AL/PL ATELE T platelets 148 x10e3 /uL 150-45 0 below low normal Not Available [facility] ([facility]) [address] [facility], [place], [address], 05/10/2023 10:06:30 05/09/19 24 05/10/2023 CBC WITH DIFFE RENTI AL/PL ATELE T neutrophils 70 % not estab. Not Available [facility] ([facility]) [address] [place], [address], 05/10/2023 10:06:30 05/09/19 24 05/10/2023 CBC WITH DIFFE RENTI AL/PL ATELE T lymphs 16 % not estab. Not Available [facility] ([facility]) [address] [place], [address], 05/10/2023 10:06:30 05/09/19 24 05/10/2023 CBC WITH DIFFE RENTI AL/PL ATELE T monocytes 9 % not estab. Not Available [facility] ([facility]) [address] [place], [address], 05/10/2023 10:06:30 05/09/19 24 05/10/2023 CBC WITH DIFFE RENTI AL/PL ATELE T eos 3 % not estab. Not Available [facility] ([facility]) [address] [facility], [place], [address], 05/10/2023 10:06:30 05/09/19 24 05/10/2023 CBC WITH DIFFE RENTI AL/PL ATELE T basos 1 % not estab. Not Available [facility] ([facility]) [address] [facility], [place], [address], 05/10/2023 10:06:30 05/09/19 24 05/10/2023 CBC WITH DIFFE RENTI AL/PL ATELE T immature cells EXECUTIVE COORDINATOR Not Available [facility] ([facility]) [address] [facility], [place], [address], 05/10/2023 10:06:30 05/09/19 24 05/10/2023 CBC WITH DIFFE RENTI AL/PL ATELE T neutrophils (absolute) 4.3 x10e3 /uL 1.4-7. 0 Not Available [facility] ([facility]) [address] [facility], [place], [address], 05/10/2023 10:06:30 05/09/19 24 05/10/2023 CBC WITH DIFFE RENTI AL/PL ATELE T lymphs (absolute) 0.9 x10e3 /uL 0.7-3. 1 Not Available [facility] ([facility]) [address] [place], [address], 05/10/2023 10:06:30 05/09/19 24 05/10/2023 CBC WITH DIFFE RENTI AL/PL ATELE T monocytes(ab solute) 0.5 x10e3 /uL 0.1-0. 9 Not Available [facility] ([facility]) [address] [place], [address], 05/10/2023 10:06:30 05/09/19 24 05/10/2023 CBC WITH DIFFE RENTI AL/PL ATELE T eos (absolute) 0.2 x10e3 /uL 0.0-0. 4 Not Available [facility] ([facility]) [address] [facility], [place], [address], 05/10/2023 10:06:30 05/09/19 24 05/10/2023 CBC WITH DIFFE RENTI AL/PL ATELE T baso (absolute) 0.1 x10e3 /uL 0.0-0. 2 Not Available [facility] ([facility]) [address] [facility], [place], [address], 05/10/2023 10:06:30 05/09/19 24 05/10/2023 CBC WITH DIFFE RENTI AL/PL ATELE T immature granulocytes 1 % not estab. Not Available [facility] ([facility]) [address] [facility], [place], [address], 05/10/2023 10:06:30 05/09/19 24 05/10/2023 CBC WITH DIFFE RENTI AL/PL ATELE T immature grans (abs) 0.1 x10e3 /uL 0.0-0. 1 Not Available [facility] ([facility]) [address] [facility], [place], [address], 05/10/2023 10:06:30 05/09/19 24 05/10/2023 CBC WITH DIFFE RENTI AL/PL ATELE T NRBC EXECUTIVE COORDINATOR Not Available [facility] ([facility]) [address] [facility], [place], [address], 05/10/2023 10:06:30 05/09/19 24 05/10/2023 CBC WITH DIFFE RENTI AL/PL ATELE T hematology comments: EXECUTIVE COORDINATOR Not Available [facility] ([facility]) [address] [facility], [place], [address], 05/10/2023 10:06:30 05/09/19 24 05/10/2023 VITAM IN D, 25-HY DROXY vitamin D, 25-hydroxy 20.8 NG/mL 30.0-1 00.0 below low normal Vitam in D defic iency has been defin ed by the Insti tute of Medic ine and an Endoc rine Socie ty pract ice guide line as a level of serum 25-OH vitam in D less than 20 ng/mL (1,2) . The Endoc rine Socie ty went on to furth er defin e vitam in D insuf ficie ncy as a level betwe en 21 and 29 ng/mL (2). 1. IOM (Inst itute of Medic ine). 2009. Dieta ry refer ence intak es for calci um and D. Fatemeh swain DC: The [facility] Press . 2. Juan Carlos willett MF, Denise ring NC, Triny off-F debbiear i LUO, et al. Evalu ation , treat ment, and preve ntion of vitam in D defic iency : an Endoc rine Socie ty clini leeanna pract ice guide line. JCEM. 2010; 96(7) :1911 -30. Not Available [facility] ([facility]) [address] [place], [address], 05/10/2023 10:06:31 05/09/19 24 05/10/2023 PTH, INTAC T PTH, intact 56 pg/mL 15-65 Not Available [facility] ([facility]) [address] [place], [address], 05/10/2023 10:06:32 10/25/19 24 10/25/2023 COMP. METAB OLIC PANEL (14) glucose 93 mg/dL 70-99 normal Not Available [facility] ([facility]) [address] [place], [address], 10/26/2023 06:09:05 10/25/19 24 10/25/2023 COMP. METAB OLIC PANEL (14) BUN 12 mg/dL 6-24 normal Not Available [facility] ([facility]) [address] [place], [address], 10/26/2023 06:09:05 10/25/19 24 10/25/2023 COMP. METAB OLIC PANEL (14) creatinine 1.31 mg/dL 0.76-1 .27 above high normal Not Available [facility] ([facility]) [address] [place], [address], 10/26/2023 06:09:05 10/25/19 24 10/25/2023 COMP. METAB OLIC PANEL (14) eGFR 65 mL/mi n/1.7 3 >59 normal Not Available [facility] ([facility]) [address], [place], [address], 10/26/2023 06:09:05 10/25/19 24 10/25/2023 COMP. METAB OLIC PANEL (14) BUN/creatini ne ratio 9 9-20 normal Not Available [facility] ([facility]) [address] [place], [address], 10/26/2023 06:09:05 10/25/19 24 10/25/2023 COMP. METAB OLIC PANEL (14) sodium 141 mmol/ L 134-14 4 normal Not Available [facility] ([facility]) [address] [place], [address], 10/26/2023 06:09:05 10/25/19 24 10/25/2023 COMP. METAB OLIC PANEL (14) potassium 4.5 mmol/ L 3.5-5. 2 normal Not Available [facility] ([facility]) [address] [place], [address], 10/26/2023 06:09:05 10/25/19 24 10/25/2023 COMP. METAB OLIC PANEL (14) chloride 108 mmol/ L 96-106 above high normal Not Available [facility] ([facility]) [address] [place], [address], 10/26/2023 06:09:05 10/25/19 24 10/25/2023 COMP. METAB OLIC PANEL (14) carbon dioxide, total 21 mmol/ L 20-29 normal Not Available [facility] ([facility]) [address] [place], [address], 10/26/2023 06:09:05 10/25/19 24 10/25/2023 COMP. METAB OLIC PANEL (14) calcium 8.9 mg/dL 8.7-10 .2 normal Not Available [facility] ([facility]) [address] [place], [address], 10/26/2023 06:09:05 10/25/19 24 10/25/2023 COMP. METAB OLIC PANEL (14) protein, total 6.9 g/dL 6.0-8. 5 normal Not Available [facility] ([facility]) [address] [place], [address], 10/26/2023 06:09:05 10/25/19 24 10/25/2023 COMP. METAB OLIC PANEL (14) albumin 4.3 g/dL 3.8-4. 9 normal Not Available [facility] ([facility]) [address] [place], [address], 10/26/2023 06:09:05 10/25/19 24 10/25/2023 COMP. METAB OLIC PANEL (14) globulin, total 2.6 g/dL 1.5-4. 5 Not Available [facility] ([facility]) [address] [place], [address], 10/26/2023 06:09:05 10/25/19 24 10/25/2023 COMP. METAB OLIC PANEL (14) bilirubin, total 0.6 mg/dL 0.0-1. 2 normal Not Available [facility] ([facility]) [address] [facility] [place], [address], 10/26/2023 06:09:05 10/25/19 24 10/25/2023 COMP. METAB OLIC PANEL (14) alkaline phosphatase 82 IU/L 44-121 normal Not Available [facility] ([facility]) [address] [place], [address], 10/26/2023 06:09:05 10/25/19 24 10/25/2023 COMP. METAB OLIC PANEL (14) AST (SGOT) 32 IU/L 0-40 normal Not Available [facility] ([facility]) [address] [place], [address], 10/26/2023 06:09:05 10/25/19 24 10/25/2023 COMP. METAB OLIC PANEL (14) ALT (SGPT) 30 IU/L 0-44 normal Not Available [facility] ([facility]) [address] [facility] [place], [address], 10/26/2023 06:09:05 10/25/19 24 10/25/2023 LIPID PANEL cholesterol, total 143 mg/dL 100-19 9 normal Not Available [facility] ([facility]) [address] [place], [address], 10/26/2023 06:09:06 10/25/19 24 10/25/2023 LIPID PANEL triglyceride s 109 mg/dL 0-149 normal Not Available [facility] ([facility]) [address] [place], [address], 10/26/2023 06:09:06 10/25/19 24 10/25/2023 LIPID PANEL HDL cholesterol 35 mg/dL >39 below low normal Not Available [facility] ([facility]) [address] [place], [address], 10/26/2023 06:09:06 10/25/19 24 10/25/2023 LIPID PANEL VLDL cholesterol leeanna 20 mg/dL 5-40 Not Available [facility] ([facility]) [address] [facility], [place], [address], 10/26/2023 06:09:06 10/25/19 24 10/25/2023 LIPID PANEL LDL chol calc ([facility]) 88 mg/dL 0-99 Not Available [facility]) [address] [facility], [place], [address], 10/26/2023 06:09:06 10/25/19 24 10/25/2023 LIPID PANEL LDL calc comment: EXECUTIVE COORDINATOR Not Available [facility] ([facility]) [address] [facility], [place], [address], 10/26/2023 06:09:06 10/25/19 24 10/26/2023 VITAM IN D, 25-HY DROXY vitamin D, 25-hydroxy 26.1 NG/mL 30.0-1 00.0 below low normal Vitam in D defic iency has been defin ed by the Insti tute of Medic ine and an Endoc rine Socie ty pract ice guide line as a level of serum 25-OH vitam in D less than 20 ng/mL (1,2) . The Endoc rine Socie ty went on to furth er defin e vitam in D insuf ficie ncy as a level betwe en 21 and 29 ng/mL (2). 1. IOM (Inst itute of Medic ine). 2009. Dieta ry refer ence joseph es for calci um and D. Fatemeh swain DC: The Nat[facility] Press . 2. Juan Carlos willett MF, Denise ring NC, Triny off-F errar i LUO, et al. Evalu ation , treat ment, and preve ntion of vitam in D defic iency : an Endoc rine Socie ty clini leeanna pract ice guide line. JCEM. 2010; 96(7) :1911 -30. Not Available [facility] ([facility]) [address] [facility], [place], [address], 10/26/2023 06:09:07 10/25/19 24 10/25/2023 TSH RFX ON ABNOR MAL TO FREE T4 TSH 6.700 uIU/m L 0.450- 4.500 above high normal Not Available [facility] ([facility]) [address] [place], [address], 10/26/2023 06:09:07 10/25/19 24 10/26/2023 TSH RFX ON ABNOR MAL TO FREE T4 T4,free (direct) 1.36 NG/dL 0.82-1 .77 normal Not Available [facility] ([facility]) [address] [place], [address], 10/26/2023 06:09:07 10/09/1910/08/2024 CMP14 +EGFR glucose 90 mg/dL 70-99 normal Not Available [facility] ([facility]) [address] [place], [address], 10/09/2024 06:07:28 10/09/19 25 10/08/2024 CMP14 +EGFR BUN 12 mg/dL 6-24 normal Not Available [facility] ([facility]) [address] [place], [address], 10/09/2024 06:07:28 10/09/19 25 10/08/2024 CMP14 +EGFR creatinine 1.11 mg/dL 0.76-1 .27 normal Not Available [facility] ([facility]) [address] [place], [address], 10/09/2024 06:07:28 10/09/1910/08/2024 CMP14 +EGFR eGFR 78 mL/mi n/1.7 3 >59 normal Not Available [facility] ([facility]) [address] [place], [address], 10/09/2024 06:07:28 10/09/19 25 10/08/2024 CMP14 +EGFR BUN/creatini ne ratio 11 9-20 normal Not Available [facility] ([facility]) [address] [place], [address], 10/09/2024 06:07:28 10/09/1910/08/2024 CMP14 +EGFR sodium 143 mmol/ L 134-14 4 normal Not Available [facility] ([facility]) [address] [place], [address], 10/09/2024 06:07:28 10/09/1910/08/2024 CMP14 +EGFR potassium 3.9 mmol/ L 3.5-5. 2 normal Not Available [facility] ([facility]) [address] [place], [address], 10/09/2024 06:07:28 10/09/1910/08/2024 CMP14 +EGFR chloride 109 mmol/ L 96-106 above high normal Not Available [facility] ([facility]) [address] [place], [address], 10/09/2024 06:07:28 10/09/1910/08/2024 CMP14 +EGFR carbon dioxide, total 19 mmol/ L 20-29 below low normal Not Available [facility] ([facility]) [address] [place], [address], 10/09/2024 06:07:28 10/09/1910/08/2024 CMP14 +EGFR calcium 9.1 mg/dL 8.7-10 .2 normal Not Available [facility] ([facility]) [address] [place], [address], 10/09/2024 06:07:28 10/09/1910/08/2024 CMP14 +EGFR protein, total 6.4 g/dL 6.0-8. 5 normal Not Available [facility] ([facility]) [address] [place], [address], 10/09/2024 06:07:28 10/09/1910/08/2024 CMP14 +EGFR albumin 4.2 g/dL 3.8-4. 9 normal Not Available [facility] ([facility]) [address] [facility], [place], [address], 10/09/2024 06:07:28 10/09/1910/08/2024 CMP14 +EGFR globulin, total 2.2 g/dL 1.5-4. 5 Not Available [facility] ([facility]) [address] [place], [address], 10/09/2024 06:07:28 10/09/1910/08/2024 CMP14 +EGFR bilirubin, total 0.6 mg/dL 0.0-1. 2 normal Not Available [facility] ([facility]) [address] [place], [address], 10/09/2024 06:07:28 10/09/1910/08/2024 CMP14 +EGFR alkaline phosphatase 86 IU/L 44-121 normal Not Available [facility] ([facility]) [address] [place], [address], 10/09/2024 06:07:28 10/09/1910/08/2024 CMP14 +EGFR AST (SGOT) 17 IU/L 0-40 normal Not Available [facility] ([facility]) [address] [place], [address], 10/09/2024 06:07:28 10/09/1910/08/2024 CMP14 +EGFR ALT (SGPT) 15 IU/L 0-44 normal Not Available [facility] ([facility]) [address] [place], [address], 10/09/2024 06:07:28 10/09/1910/09/2024 CBC, PLATE LET, NO DIFFE RENTI AL WBC 5.2 x10e3 /uL 3.4-10 .8 normal Not Available [facility] ([facility]) [address] [place], [address], 10/09/2024 06:07:28 10/09/1910/09/2024 CBC, PLATE LET, NO DIFFE RENTI AL RBC 4.61 x10e6 /uL 4.14-5 .80 normal Not Available [facility] ([facility]) [address] [facility], [place], [address], 10/09/2024 06:07:28 10/09/1910/09/2024 CBC, PLATE LET, NO DIFFE RENTI AL hemoglobin 14.9 g/dL 13.0-1 7.7 normal Not Available [facility] ([facility]) [address] [facility], [place], [address], 10/09/2024 06:07:28 10/09/1910/09/2024 CBC, PLATE LET, NO DIFFE RENTI AL hematocrit 43.4 % 37.5-5 1.0 normal Not Available [facility] ([facility]) [address] [place], [address], 10/09/2024 06:07:28 10/09/1910/09/2024 CBC, PLATE LET, NO DIFFE RENTI AL MCV 94 fL 79-97 normal Not Available [facility] ([facility]) [address] [place], [address], 10/09/2024 06:07:28 10/09/1910/09/2024 CBC, PLATE LET, NO DIFFE RENTI AL MCH 32.3 pg 26.6-3 3.0 normal Not Available [facility] ([facility]) [address] [place], [address], 10/09/2024 06:07:28 10/09/1910/09/2024 CBC, PLATE LET, NO DIFFE RENTI AL MCHC 34.3 g/dL 31.5-3 5.7 normal Not Available [facility] ([facility]) [address] [place], [address], 10/09/2024 06:07:28 10/09/1910/09/2024 CBC, PLATE LET, NO DIFFE RENTI AL RDW 12.7 % 11.6-1 5.4 Not Available [facility] ([facility]) [address] [facility], [place], [address], 10/09/2024 06:07:28 10/09/19 25 10/09/2024 CBC, PLATE LET, NO DIFFE RENTI AL platelets 121 x10e3 /uL 150-45 0 below low normal Not Available [facility] ([facility]) [address] [facility], [place], [address], 10/09/2024 06:07:28 10/09/1910/09/2024 CBC, PLATE LET, NO DIFFE RENTI AL NRBC EXECUTIVE COORDINATOR Not Available [facility] ([facility]) [address] [place], [address], 10/09/2024 06:07:28 10/09/1910/08/2024 LIPID PANEL cholesterol, total 132 mg/dL 100-19 9 normal Not Available [facility] ([facility]) [address] [place], [address], 10/09/2024 06:07:29 10/09/19 25 10/08/2024 LIPID PANEL triglyceride s 116 mg/dL 0-149 normal Not Available [facility] ([facility]) [address] [place], [address], 10/09/2024 06:07:29 10/09/19 25 10/08/2024 LIPID PANEL HDL cholesterol 31 mg/dL >39 below low normal Not Available [facility] ([facility]) [address] [place], [address], 10/09/2024 06:07:29 08/25/20 25 10/08/2024 LIPID PANEL VLDL cholesterol leeanna 21 mg/dL 5-40 Not Available [facility] ([facility]) [address] [place], [address], 10/09/2024 06:07:29 10/09/19 25 10/08/2024 LIPID PANEL LDL chol calc ([facility]) 80 mg/dL 0-99 Not Available [facility] [address] [facility], [place], [address], 10/09/2024 06:07:29 10/09/19 25 10/08/2024 LIPID PANEL LDL calc comment: EXECUTIVE COORDINATOR Not Available [facility] ([facility]) [address] [facility], [place], [address], 10/09/2024 06:07:29 10/09/19 25 10/09/2024 VITAM IN D, 25-HY DROXY vitamin D, 25-hydroxy 51.9 NG/mL 30.0-1 00.0 Vitam in D defic iency has been defin ed by the Insti tute of Medic ine and an Endoc rine Socie ty pract ice guide line as a level of serum 25-OH vitam in D less than 20 ng/mL (1,2) . The Endoc rine Socie ty went on to [facility] er defin e vitam in D insuf ficie ncy as a level betwe en 21 and 29 ng/mL (2). 1. IOM (Inst itute of Medic ine). 2010. Dieta ry refer ence intak es for calci um and D. Fatemeh swain DC: The [facility] Press . 2. Juan Carlos willett MF, Denise ring NC, Triny off-F marva i LUO, et al. Evalu ation , treat ment, and preve ntion of vitam in D defic iency : an Endoc rine Socie ty clini leeanna pract ice guide line. JCEM. 2010; 96(7) :1911 -30. Not Available [facility] ([facility]) [address] [place], [address], 10/09/2024 06:07:29 10/09/19 25 10/08/2024 TSH RFX ON ABNOR MAL TO FREE T4 TSH 1.010 uIU/m L 0.450- 4.500 normal Not Available [facility] ([facility]) [address] [facility], [place], [address], 10/09/2024 06:07:30 10/09/19 25 10/09/2024 VITAM IN B12 vitamin B12 558 pg/mL 232-12 45 normal Not Available [facility] ([facility]) [address] [facility], [place], [address], 10/09/2024 06:07:30 02/10/20 24 02/09/2024 MRI, cervi leeanna spine , w/o contr ast See Note [facility] , a member of [employer] [facility] t Name: JIMENEZ DHILLON Date of : 1970 Reason for Exam: PAIN Exam Date: 2023 [id number] EST Report Status : Final Orderi ng Provid er: GIUSEPPE DINERO PCP: MARCUS BRYANT MRI of the cervic al spine, 2023. TECHNI QUE: Sagitt al and axial multis equenc e MRI of the cervic al spine withou t intrav enous contra st admini strati on. HISTOR Y: PAIN COMPAR RACHEL: Radiog raphs dated 2020. FINDIN GS: The paroti d glands are partia lly includ ed in the field of view and appear atroph ic. The parasp inous soft tissue s are otherw ise unrema rkable . Visual ized portio ns of the brain and skull base are normal . Anteri or fusion hardwa re at C3-4. Revers al of the typica l cervic al lordos is center ed at C6-7. No listhe sis. No concer hanane marrow infilt rative lesion . There is a linear signal abnorm ality in the right parame cesilia cord and irregu lar signal abnorm ality in the left parame cesilia cord at C3-4. The cervic al cord appear s atroph ic for patien t age. Cervic al disc levels : C2-3: Mild endpla te irregu larity . Small bilate ral uncove rtebra l spurs. Mild bilate ral facet arthro sarkis. No signif icant spinal or forami nal stenos is. C3-4: Fusion level. Minima l degene rative irregu larity of the facet joints . No signif icant spinal or forami nal stenos is. C4-5: Mild endpla te irregu larity . Mild bilate ral facet arthro sarkis. Small left greate r than right uncove rtebra l spurs. Mild-m oderat e left and mild right forami nal stenos is. No spinal stenos is. C5-6: Mild endpla te irregu larity . Small right uncove rtebra l spurs and a small disc osteop hyte comple x in the right centra l region . Minima l degene rative irregu larity of the facet joints . No spinal or forami nal stenos is. C6-7: Mild disc space height loss and endpla te irregu larity . Small bilate ral uncove rtebra l spurs and a small left centra l focal protru myke with flatte hanane of the anteri or cord. No spinal stenos is. Mild left forami nal stenos is. C7-T1: Mild disc space height loss and modera te endpla te irregu larity . Small bilate ral uncove rtebra l spurs and a small symmet katie disc osteop hyte comple x. No spinal stenos is. Mild bilate ral forami nal stenos is. IMPRES MYKE: Promin ent multil evel degene rative change s probab ly affect ing the verteb ral endpla audrey. Anteri or fusion at C3-4. Irregu lar signal abnorm ality in the cord at C3-4 sugges ting myelom alacia . Genera lized cervic al cord atroph y. ------ -- FINAL REPORT ------ -- Dictat ed By: Guzman Mercer Dictat ed Date: 2023 13:47 ET Assign ed Physic ravindra: Guzman Mercer Review ed and Electr onical ly Signed By: Guzman Mercer Signed Date: 2023 14:11 ET Workst ation ID: [id number] Transc ribed By: Self Edit Transc ribed Date: 2023 14:[address] [facility] [address] [facility], [place], [address], 10/06/2024 13:10:11 03/06/19 25 02/23/2024 CT, heart funct ion and morph ology , w/ contr ast No observ ation record ed. [email or web address] Not Available 10/06 13:10:11 Result Notes None recorded. Problems Name Problem SNOMED Code Status Onset Date Resolution Date Notes Provider Name and Address Organization Details Recorded Time Body mass index 25-29 - overweig [id number] Completed 08/18/2016 Marcus Prieto MD [address], [place], [address], [facility] 7 10:18:32 Sight deterior ating [id number] Completed 07/10/2015 Marcus Prieto MD [address], [place], [address], [facility] 6 06:10:05 Body mass index 30+ - obesity [id number] Completed 04/23/2019 [facility] [place] 2 11:18:15 Dizzines s [id number] Completed 08/18/2016 Marcus Prieto MD [address], [place], [address], [facility] [place] 7 10:18:58 Subclini leeanna hypothyr oidism [id number] Completed 08/20/2016 Marcus Prieto MD [address], [place], [address], [facility] [place] 7 16:22:21 Hyperopi c astigmat is [id number] Active Ernestine Money null, [facility] 0 10:18:50 Cataract [id number] Active Ernestine Money null, [facility] 0 10:18:50 History of calculus of kidney [id number] Active Ernestine Money null, [facility] 0 09:27:16 Atrial septal defect [id number] Completed 05/01/2020 Removal Reason: repaired Marcus Prieto MD [address], [place], [address], [facility] 1 06:30:51 Cigarett e smoker [id number] Completed 04/29/2020 Marcus Prieto MD [address], [place], [address], [facility] 1 14:59:58 Chronic low back pain [id number] Completed 05/06/2022 Marcus Prieto MD [address], [place], [address], [facility] 3 09:44:39 Aneurysm of ascendin g aorta [id number] Completed 08/29/2020 Marcus Prieto MD [address], [place], [address], [facility] 1 11:36:56 Dysphagi a [id number] Completed 04/29/2020 Marcus Prieto MD [address], [place], [address], [facility] 1 14:59:45 Hyperten sive disorder [id number] Completed 05/01/2020 Removal Reason: resolved Marcus Prieto MD [address], [place], [address], [facility] 1 06:36:52 Heart murmur [id number] Completed 08/29/2020 Marcus Prieto MD [address] [facility] [address], [place], [address], [facility] 1 11:35:59 Spinal stenosis [id number] Completed 05/06/2022 Marcus Prieto MD [address] [facility] [address], [place], [address], [facility] 3 09:42:59 Gastroes ophageal reflux disease [id number] Active Ernestine [facility]nel[facility] 0 09:27:16 Hyperlip idemia [id number] Completed 10/05/2024 Marcus Prieto MD [address] [facility] [facility] [address], [place], [address], [facility] 5 15:39:02 Influenz a vaccine needed [id number] 06 Completed 201108/28/2013 RECORDED 11/24/19 12 3:14PM BY SOLEDAD ALARCON MA, OFFICE VISIT Marcus Prieto MD [address] [facility] [address], [place], [address], [facility] 6 06:10:05 Influenz a vaccine needed [id number] 06 Completed 201109/20/2013 RECORDED 11/24/19 12 3:14PM BY SOLEDAD ALARCON MA, OFFICE VISIT Marcus Prieto MD [address] [facility] [address], [place], [address], [facility] 6 06:10:05 Influenz a vaccine needed [id number] 06 Completed 201109/21/2013 RECORDED 11/24/19 12 3:14PM BY SOLEDAD ALARCON MA, OFFICE VISIT Marcus Prieto MD [address] [facility] [address], [place], [address], [facility] 6 06:10:05 Tobacco dependen ce syndrome [id number] Completed 201208/28/2013 IMPRESSI ON: PT CONTINUE S TO UNDERSTA ND/ACCEP T POTENTIA L [facility]. WORKING ON TAPERING .; RECORDED 12/26/19 13 11:43AM BY SOLEDAD ALARCON MA, ANTONIA ON/ADDEN DUM Marcus Prieto MD [address], [place], [address], [facility] 8 14:20:28 Knee pain Completed 201208/28/2013 RECORDED 12/26/19 13 11:43AM BY SOLEDAD ALARCON MA, ANTONIA ON/MARYAEN LENORA Prieto MD [address], [place], [address], [facility] 6 06:10:05 Kidney stone [id number] Completed 201208/28/2013 RECORDED 12/26/19 13 11:43AM BY SOLEDAD ALARCON MA, ANTONIA ON/ADDEN DUM Marcus Prieto MD [address], [place], [address], [facility] 7 10:24:33 Knee pain Completed 201209/20/2013 RECORDED 12/26/19 13 11:43AM BY SOLEDAD ALARCON MA, ANNOTATI ON/LINDA Prieto MD [address], [place], [address], [facility] 6 06:10:05 Kidney stone [id number] Completed 201209/20/2013 RECORDED 12/26/19 13 11:43AM BY SOLEDAD ALARCON MA, ANNOTATI ON/LINDA Prieto MD [address], [place], [address], [facility] 7 10:24:33 Knee pain Completed 201209/21/2013 RECORDED 12/26/19 13 11:43AM BY SOLEDAD ALARCON MA, ANNOTATI ON/ADDEN DUM Marcus Prieto MD [address], [place], [address], [facility] 6 06:10:05 Kidney stone [id number] Completed 201209/21/2013 RECORDED 12/26/19 13 11:43AM BY SOLEDAD ALARCON MA, ANNOTATI ON/ADDEN DUM Marcus Prieto MD [address], [place], [address], [facility] 7 10:24:33 Tobacco dependen ce syndrome [id number] Completed 201303/10/2017 Marcus Prieto MD [address], [place], [address], [facility] 8 14:20:28 Derangem ent of medial meniscus 216942767 Active 2013 [facility] 10:18:51 Adult health examinat ion Completed 201308/28/2013 IMPRESSI ON: IMMUNIZA TION STATUS UTD, SHORT OF FLU WHICH PT DECLINES . WILL SCREEN BASED ON RISK FACTORS. REGULAR DENTAL CARE AND SEATBELT USE ADVISED. DISTRACT ED DRIVING DIEGO Henao MONTHLY HALEY ADVISED. ; RECORDED 06/29/19 14 3:19PM BY SHEEBA CHONG MA, ANTONIA ON/ADDEN DUM Marcus Prieto MD [address], [place], [address], [facility] 6 06:10:05 Low back pain [id number] Completed 201307/10/2015 Marcus Prieto MD [address], [place], [address], [facility] 6 06:10:05 Lumbosac ral spondylo sis without myelopat hy 98642728 Active 2013 [facility] 0 10:18:50 Congenit al omphaloc cande 36095279 Completed 201301/02/2014 RECORDED 06/29/19 14 3:19PM BY SHEEBA CHONG MA, OFFICE VISIT Marcus Prieto MD [address] [facility] [address], [place], [address], [facility] 6 06:10:05 Overweig ht [id number] Completed 201308/18/2016 IMPRESSI ON: MAKING PROGRESS ON THIS FRONT. UNDERSTA NDS POTENTIA L PANEL LAY UP [facility] NC[facility]. CONTIUNE D EFFORT ON REGULAR PHYSICAL ACTIOVIT Y AND WEIGHT LOSS ADVISED. ; RECORDED 06/29/19 14 3:19PM BY SHEEBA CHONG MA, OFFICE VISIT Marcus Prieto MD [address] [address], [facility] [place], [address], [facility] 7 10:18:38 Immuniza tion refused Completed 201308/28/2013 RECORDED 06/29/19 14 3:19PM BY SHEEBA CHONG MA, ANNOTATI ON/ADDEN DUM Marcus Prieto MD [address] [facility] [address], [facility] [place], [address], [facility] 6 06:10:05 Abnormal weight loss [id number] Completed 201301/02/2014 IMPRESSI ON: SOME EVIDENCE THAT THIS IS INTENTIO NAL BUT STILL WORRISOM E. WILL START WITH LABS AND CXR IF ALL UNREMARK ABLE WILL MONITOR. ; RECORDED 06/29/19 14 4:46PM BY MARCUS Jacobs MD, OFFICE VISIT Marcus Prieto MD [address] [facility] [address], [place], [address], [facility] 6 06:10:05 Adult health examinat ion Completed 201309/20/2013 IMPRESSI ON: IMMUNIZA TION STATUS UTD, SHORT OF FLU WHICH PT DECLINES . WILL SCREEN BASED ON RISK FACTORS. REGULAR DENTAL CARE AND SEATBELT USE ADVISED. DISTRACT ED DRIVING DISCUSSE D. MONTHLY HALEY ADVISED. ; RECORDED 06/29/19 14 3:19PM BY SHEEBA CHONG MA, ANTONIA ON/LINDA Prieto MD [address] [facility] [address], [place], [address], [facility] 6 06:10:05 Immuniza tion refused Completed 201309/20/2013 RECORDED 06/29/19 14 3:19PM BY SHEEBA CHONG MA, ANNOTATI ON/LINDA Prieto MD [address] [facility] [address], [place], [address], [facility] 6 06:10:05 Adult health examinat ion Completed 201309/21/2013 IMPRESSI ON: IMMUNIZA TION STATUS UTD, SHORT OF FLU WHICH PT DECLINES . WILL SCREEN BASED ON RISK FACTORS. REGULAR DENTAL CARE AND SEATBELT USE ADVISED. DISTRACT ED DRIVING DISCUSSE DChandana MONTHLY HALEY ADVISED. ; RECORDED 06/29/19 14 3:19PM BY SHEEBA CHONG MA, ANNOTATI ON/LINDA Prieto MD [address] [facility] [address], [place], [address], [facility] 6 06:10:05 Immuniza tion refused Completed 201309/21/2013 RECORDED 06/29/19 14 3:19PM BY SHEEBA CHONG MA, ANNOTATI ON/LINDA Prieto MD [address] [facility] [address], [place], [address], [facility] 6 06:10:05 Pure hypercho lesterol emia 287325056 Active 2013 [facility] 0 10:18:50 Thyroid function tests abnormal 672272666 Completed 201308/18/2016 Marcus Prieto MD [address], [place], [address], [facility] 7 10:18:53 Thromboc ytopenic disorder 974937129 Active 2013 Ernestine garcía, [facility] 0 10:18:51 Kidney stone 94978298 Active 2016 Ernestine garcía, [facility] 0 10:18:50 Intermit tent dysphagi a 96026220 Completed 201603/10/2017 Marcus Prieto MD [address], [place], [address], [facility] 8 14:24:16 Hypothyr oidism 68136858 Active 2016 Marcus Prieto MD [address], [place], [address], [facility] 7 08:59:10 Ostium secundum type atrial septal defect 444131252 Completed 201604/23/2019 Marcus Prieto MD [address], [place], [address], [facility] 0 11:39:25 Aneurysm of thoracic aorta 699739446 Completed 201609/05/2017 5cm on echo, 4.[address] angio Removal Reason: s/p repair Marcus Prieto MD [address], [place], [address], [facility] 8 10:53:45 Cystic disease of kidney Active 2016 left Ernestine garcía, [facility] 0 10:18:50 Solitary nodule of lung 961129791 Completed 201605/09/2023 3mm left lingular , no f/u needed Marcus Prieto MD [address], [place], [address], [facility] 4 10:23:47 Atrial fibrilla tion 78275006 Active 2017 [facility] 0 10:18:51 Aortic valve disorder 4369487 Completed 201710/24/2023 Marcus Prieto MD [address], [place], [address], [facility] 4 09:00:48 Coronary arterios clerosis 95362393 Active 2017 Marcus Prieto MD [address], [place], [address], [facility] 8 18:29:43 Pericard ial effusion 410449629 Completed 201703/13/2017 Marcus Prieto MD [address], [place], [address], [facility] 8 22:07:05 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 Ernestine garcía, [facility] 0 10:18:51 Anxiety 81119787 Active 2017 Marcus Prieto MD [address], [place], [address], [facility] 8 15:16:34 Tobacco user 619907839 Completed 201709/05/2017 Marcus Prieto MD [address], [place], [address], [facility] 8 10:52:42 Cervical radiculi tis 71853964 Completed 201705/27/2023 Marcus Prieto MD [address], [place], [address], [facility] 4 09:15:37 Chronic obstruct mika pulmonar y disease 15695498 Active 2017 [facility] 0 10:18:51 Cervical disc disorder 000977242 Active 2017 [facility] 0 10:18:50 Headache 93627395 Completed 201705/06/2022 Marcus Prieto MD [address], [place], [address], [facility] 3 09:44:23 Vitamin D deficien cy 95872451 Active 2017 Ernestine [facility] 0 10:18:51 Complica daniel migraine 526527679 Active 2018 Ernestineclaudette Donnelly [facility] 0 10:18:50 Repair of ostium primum defect Active 2019 Ernestineclaudette Donnelly [facility] 0 10:18:51 Post-tra umatic stress disorder 19528231 Active 2019 Marcus Prieto MD [address], [place], [address], [facility] 0 14:11:34 Long-ter m current use of anticoag ulant 147567858 Active 2019 Marcus Prieto MD [address], [place], [address], [facility] 0 10:33:04 Replacem ent of aortic valve Completed 202005/09/2023 Marcus Prieto MD [address], [place], [address], [facility] 4 10:28:59 Spinal stenosis in cervical region 44951923 Completed 202005/09/2023 C3-C4 severe Marcus Prieto MD [address] [facility] [address], [place], [address], [facility] 4 10:10:00 Chronic kidney disease stage 3A 595648721 Completed 202005/27/2023 Marcus Prieto MD [address] [facility] [address], [place], [address], [facility] 4 09:15:19 Recurren t major depressi on 74543920 Completed 202105/27/2023 Marcus Prieto MD [address] [facility] [address], [place], [address], [facility] 4 09:16:21 Hypophos phatemia 5249178 Completed 202105/09/2023 Marcus Prieto MD [address] [facility] [address], [place], [address], [facility] 4 10:23:56 Hyperpar athyroid ism 84865601 Completed 202105/06/2022 Marcus Prieto MD [address] [facility] [address], [place], [address], [facility] 3 07:34:18 Hyperpar athyroid ism 49029959 Active 2021 Marcus Prieto MD [address] [facility] [address], [place], [address], [facility] 3 07:34:18 Carpal tunnel syndrome 10166244 Active 2022 Marcus Prieto MD [address] [facility] [address], [place], [address], [facility] 3 12:30:50 Recurren t major depressi on in full remissio n 00402493 Active 2023 Marcus Prieto MD [address], [place], [address], [facility] 4 10:23:16 History of aortic valve replacem ent 81468317308 00 Active 2023 Marcus Prieto MD [address], [place], [address], [facility] 4 10:29:00 Tobacco dependen ce in [facility] 914894719 Active 2023 Marcus Prieto MD [address], [place], [address], [facility] 4 09:24:15 History of cervical spine fusion 21435569971 Active 2023 Marcus Prieto MD [address], [place], [address], [facility] 4 09:04:14 Myelomal acia 38413369 Active 2024 cervical Marcus Prieto MD [address], [place], [address], [facility] 5 20:26:39 Cervical arthriti s 053638456 Active 2024 Marcus Prieto MD [address], [place], [address], [facility] 5 20:26:59 Paresthe laura of bilatera l hands 668551724 Active 2024 Marcus Prieot MD [address], [place], [address], [facility] 5 13:12:33 Problem Notes None recorded. Procedures Surgical History Date Name Laterality Status Provider Name and Address Organization Details Recorded Time 02/28/19 CT angiography of coronary artery with contrast completed Marcus Prieto MD [address], [place], [address], [facility] 03/07/2024 09:57:59 12/12/19 24 catheter ablation of arrhythmogenic focus completed Marcus Prieto MD [address] [facility], [place], [address], [facility] 10/05/2024 15:10:53 07/15/19 23 Echo transthoracic completed Marcus Prieto MD [address] [place] [address], [address], [facility] 08/11/2022 10:48:55 07/07/19 22 Echo transthoracic completed Marcus Prieto MD [address], [address], [facility] 11/08/2021 20:17:13 07/19/19 21 fusion of joint of cervical spine by anterior approach for deformity of cervical spine completed Marcus Prieto MD [address] [place] [address], [address], [facility] 07/21/2020 14:38:27 06/25/19 21 Echo transthoracic completed Marcus Prieto MD [address], [address], [facility] 07/01/2020 15:04:18 12/01/19 18 Echo transthoracic completed Marcus Prieto MD [address] [facility] [address] [place] [address], [address], [facility] 07/01/2020 15:11:11 02/12/20 17 Echo transthoracic completed Marcus Prieto MD [address] [place] [address], [address], [facility] 03/13/2017 21:51:22 02/11/20 17 Cabg vein single completed Marcus Prieto MD [address] [place] [address], [address], [facility] 02/20/2017 18:26:39 02/11/20 17 Revision of heart chamber completed Marcus Prieto MD [address] [facility], [place], [address], [facility] 02/20/2017 18:27:12 02/11/20 17 Cardiac Surgery completed Marcus Prieto MD [address] [facility] [address] [facility], [place], [address], [facility] 03/13/2017 21:47:35 01/13/20 17 Cardiac Surgery completed Marcus Prieto MD [address] [address], [place], [address], [facility] 01/17/2017 09:48:53 01/08/20 17 Egd diagnostic brush wash completed Marcus Prieto MD [address] [address], [place], [address], [facility] 01/11/2017 08:13:43 11/20/19 17 Echo transthoracic completed Marcus Prieto MD [address] [address], [place], [address], [facility] 11/30/2016 21:53:14 11/10/19 17 Cardiovascular stress test completed Marcus Prieto MD [address] [address], [place], [address], [facility] 11/17/2016 08:06:05 02/14/18 70 Repair umbilical lesion completed Marcus Prieto MD [address], [address], [facility] 09/05/2017 11:01:01 Imaging Results None recorded. Procedure Notes None recorded. Medical Equipment None Reported. Allergies Allergen ID Allergen Name Allergen Category Reaction Reaction Severity Criticality Documentation Date Start Date Code Code System Note Provider Name and Address Organization Details Recorded Time 2593 Augmentin medicatio n hives Not available Not available 08/28/20132013 71254 2 [facility] [facility] 8 10:05:21 Medications Name Sig Start Date Stop Date Status Note LastModified by Organization Details LastModified Time cyclobenz aprine 10 mg tablet THREE TIMES DAILY, NEEDED 11/24 completed RECORDED 12/01/19 12 12:54PM BY MARCUS Jacobs MD, MEDICATI ON AUTO-EDINSON CTIVATIO N; Not Available Not Available Not Available latanopro st 0.005 % eye drops INSTILL 1 DROP IN BOTH EYES EVERY NIGHT AT BEDTIME active Not Available Not Available No t Available methocarb christiano 500 mg tablet TAKE 2 TABLET BY MOUTH THREE TIMES DAILY FOR 5 DAYS 10/05 completed Not Available Not Available Not Available levothyro xine 175 mcg tablet TAKE 1 TABLET BY MOUTH EVERY DAY active Not Available Not Available No t Available levothyro xine 137 mcg tablet TAKE 1 TABLET BY MOUTH EVERY DAY 04/30 completed Not Available Not Available Not Available atorvasta tin 80 mg tablet TAKE 1 TABLET BY MOUTH EVERY DAY active Not Available Not Available No t Available prednison e 10 mg tablet 05/06 completed Not Available Not Available Not Available Dilaudid 2 mg tablet Take 1 tablet every day by oral route as directed for 7 days. 12/27 completed Not Available Not Available Not Available atorvasta tin 20 mg tablet Take 1 tablet every day by oral route. 11/12 completed Not Available Not Available Not Available amiodaron e 200 mg tablet TAKE 1 TABLET BY MOUTH DAILY 03/07 completed Not Available Not Available Not Available riboflavi n (vitamin B2) 100 mg tablet 200 mg by oral route. 09/27 completed Not Available Not Available Not Available prednison e 20 mg tablet TAKE 2 TABLETS BY MOUTH EVERY DAY FOR 5 DAYS 11/08 completed Not Available Not Available Not Available clonazepa m 0.5 mg tablet Take 1 tablet every day by oral route as needed. 10/31 completed Not Available Not Available Not Available lovastati n 40 mg tablet Take 1 tablet every day by oral route for 30 days. 08/18 completed Not Available Not Available Not Available sertralin e 100 mg tablet TAKE 1 TABLET BY MOUTH EVERY DAY 2024 active Not Available Not Available Not Avai lable clonazepa m 1 mg tablet Take 0.5 tablets 3 times a day by oral route as directed . 06/14 completed Not Available Not Available Not Available clindamyc in HCl 150 mg capsule Take 1 capsule every 6 hours by oral route. 03/03 completed Not Available Not Available Not Available warfarin 2.5 mg tablet TAKE 1 TO 2 TABLETS BY MOUTH DAILY DIRECTED BY [facility] active Not Available Not Available No t Available topiramat e 25 mg tablet TAKE 1 TABLET BY MOUTH EVERY DAY 05/03 completed Not Available Not Available Not Available sulfameth oxazole 800 mg-trimet hoprim 160 mg tablet TK 1 T PO Q 12 H FOR 5 DAYS 11/01 completed Not Available Not Available Not Available omeprazol e 40 mg capsule,d elayed release Take 1 capsule every day by oral route as needed. 03/10 completed Not Available Not Available Not Available tramadol 50 mg tablet TAKE 1 TABLET BY MOUTH EVERY 6 HOURS NEEDED active Not Available Not Available No t Available acetamino phen 500 mg tablet Take 2 tablets every 6 hours by oral route as needed. active Not Available Not Available No t Available triamcino lone acetonide 0.1 % topical cream APPLY A THIN LAYER TO THE AFFECTED AREA(S) BY TOPICAL ROUTE 2 TIMES PER DAY x 10 days 11/12 completed Not Available Not Available Not Available levothyro xine 25 mcg tablet Take 1 tablet every day by oral route for 30 days. 07/21 completed Not Available Not Available Not Available warfarin 3 mg tablet Take 1 tablet every day by oral route as directed . 03/10 completed Not Available Not Available Not Available levothyro xine 75 mcg tablet Take 1.5 tablets every day by oral route. 09/11 completed Not Available Not Available Not Available amitripty line 25 mg tablet Take by oral route for 30 days. 09/16 completed Not Available Not Available Not Available magnesium oxide 400 mg (241.3 mg magnesium ) tablet 400 mg by oral route. 05/17 completed Not Available Not Available Not Available levothyro xine 50 mcg tablet Take 1 tablet every day by oral route. 07/21 completed Not Available Not Available Not Available Lasix 20 mg tablet Take 1 tablet every day by oral route in the morning. 05/16 completed Not Available Not Available Not Available cephalexi n 500 mg capsule Take 1 capsule 3 times a day by oral route. 11/01 completed Not Available Not Available Not Available pantopraz ole 40 mg tablet,de layed release Take 1 tablet every day by oral route for 90 days. 11/02 completed Not Available Not Available Not Available levothyro xine 125 mcg tablet Take 1 tablet every day by oral route. 01/11 completed Not Available Not Available Not Available warfarin 2 mg tablet Take 1 tablet every day by oral route as directed . 07/21 completed Not Available Not Available Not Available warfarin 5 mg tablet Take 1 tablet every day by oral route. 04/22 completed Not Available Not Available Not Available levothyro xine 150 mcg tablet TAKE 1 TABLET BY MOUTH EVERY DAY IN THE MORNING active Not Available Not Available No t Available nitroglyc ellie 0.4 mg sublingua l tablet Place 1 tablet as needed by sublingu al route as directed . 03/03 completed Not Available Not Available Not Available docusate sodium 100 mg capsule Take 1 capsule every day by oral route as needed. 05/16 completed Not Available Not Available Not Available gabapenti n 300 mg capsule TAKE 1 CAPSULE BY MOUTH THREE TIMES DAILY active Not Available Not Available No t Available sertralin e 25 mg tablet Take 1 tablet every day by oral route for 30 days. 04/22 completed Not Available Not Available Not Available omeprazol e 20 mg capsule,d elayed release TAKE 1 CAPSULE BY MOUTH EVERY DAY 01/18 completed Not Available Not Available Not Available enoxapari n 150 mg/mL subcutane ous syringe INJECT 150 MG SUBCUTAN EOUSLY EVERY DAY 05/04 completed Not Available Not Available Not Available aspirin 81 mg tablet 81 mg by oral route. 02/08 completed Not Available Not Available Not Available mupirocin 2 % topical ointment APPLY A SMALL AMOUNT TO THE AFFECTED AREA BY TOPICAL ROUTE 3 TIMES PER DAY 09/05 completed Not Available Not Available Not Available metoprolo l succinate ER 25 mg tablet,ex tended release 24 hr TAKE 1 TABLET BY MOUTH DAILY active Not Available Not Available No t Available Aspir-81 mg tablet,de layed release Take 1 tablet every day by oral route as directed for 90 days. 2016 active Not Available Not Available Not Divya raya Coumadin 1 mg tablet Take 6.5 tablets by oral route. 09/19 completed Not Available Not Available Not Available sertralin e 50 mg tablet Take 1 tablet every day by oral route as directed . 10/13 completed Not Available Not Available Not Available imipramin e 25 mg tablet Take 1 tablet every day by oral route at bedtime. 07/21 completed Not Available Not Available Not Available doxycycli ne hyclate 100 mg tablet Take 1 tablet twice a day by oral route. 11/01 completed Not Available Not Available Not Available diazepam 5 mg tablet Take 1 tablet every other day by oral route for 10 days. 05/04 completed Not Available Not Available Not Available oxycodone 5 mg tablet TAKE 1 TABLET BY MOUTH EVERY 6 HOURS NEEDED FOR SEVERE PAIN 10/05 completed Not Available Not Available Not Available metoprolo l tartrate 25 mg tablet Take 1 tablet twice a day by oral route as directed for 30 days. 09/27 completed Not Available Not Available Not Available topiramat e 50 mg tablet TAKE 1 TABLET BY MOUTH EVERY DAY active Not Available Not Available No t Available naproxen TWO TIMES DAILY, NEEDED 09/14 completed RECORDED 09/15/19 13 3:40PM BY SOLEDAD ALARCON MA, OFFICE VISIT; Not Available Not Available Not Available cholecalc iferol (vitamin D3) 1,250 mcg (50,000 unit) capsule TAKE ONE CAPSULE BY MOUTH EVERY WEEK 08/05 completed Not Available Not Available Not Available oxycodone 10 mg tablet Take 1 tablet every 4 hours by oral route as needed. 06/08 completed Not Available Not Available Not Available cholecalc iferol (vitamin D3) 50 mcg (2,000 unit) capsule TAKE 2 CAPSULES EVERY DAY BY MOUTH active Not Available Not Available No t Available Combivent Respimat 20 mcg-100 mcg/actua tion solution for inhalatio n INHALE 1 PUFF BY MOUTH EVERY 6 TO 8 HOURS NEEDED active Not Available Not Available No t Available Anoro Ellipta 62.5 mcg-25 mcg/actua tion powder for inhalatio n INHALE 1 PUFF BY MOUTH EVERY DAY active Not Available Not Available No t Available Vitals Date Recorded Body height Body mass index (BMI) Body weight Oxygen saturation Oxygen saturation in Arterial blood by Pulse oximetry Heart rate Body temperature Systolic And Diastolic Provider Name and Address Organization Details Last Updated DateTime 4 190.5 cm 37.6 kg/m2 643849 g 97 % 97 % 80 /min 98.2 [degF] 110/61 mm[Hg] Liliaen Morales MA [facility] 4 13:00:27 Date Recorded Body height Body mass index (BMI) Body weight Heart rate Oxygen saturation Oxygen saturation in Arterial blood by Pulse oximetry Body temperature Systolic And Diastolic Provider Name and Address Organization Details Last Updated DateTime 4 190.5 cm 36.7 kg/m2 161224. 36 g 73 /min 95 % 95 % 97.9 [degF] 122/65 mm[Hg] Hollie [facility] 4 09:50:35 Date Recorded Body height Body mass index (BMI) Body weight Heart rate Oxygen saturation Oxygen saturation in Arterial blood by Pulse oximetry Body temperature Systolic And Diastolic Provider Name and Address Organization Details Last Updated DateTime 4 190.5 cm 37.7 kg/m2 051710. 9 g 107 /min 97 % 97 % 98.3 [degF] 100/61 mm[Hg] Hollie Zarate MA [facility] 4 08:41:27 Date Recorded Body height Body mass index (BMI) Body weight Heart rate Oxygen saturation Oxygen saturation in Arterial blood by Pulse oximetry Body temperature Systolic And Diastolic Provider Name and Address Organization Details Last Updated DateTime 3 190.5 cm 37.2 kg/m2 668304. 73 g 72 /min 98 % 98 % 98.7 [degF] 125/68 mm[Hg] Hollie Zarate MA [facility] 3 11:39:59 Social History Question Answer Notes LastModified by Organizat ion Details LastModified Time Tobacco Smoking Status Former Smoker Quit 11/2016 Not Available [employer] 12/18/2019 03:36:40 Do You Have An Advance Directive? Yes HCP/-Jerry harper, Mom-Leonora [id number] Information not available 12/18/2019 Is Blood Transfusion Acceptable In An Emergency? Yes [id number] Information not available 12/18/2019 What Is Your Level Of Caffeine Consumption? Moderate Coffee [id number] Information not available 12/18/2019 How Much Tobacco Do You Chew? None [id number] Information not available 12/18/2019 In The 14 Days Before Symptom Onset, Have You Had Close Contact With A Laboratory-confir med COVID-19 While That Case Was Ill? No [id number] Information not available 12/18/2019 In The 14 Days Before Symptom Onset, Have You Had Close Contact With A Person Who Is Under Investigation For COVID-19 While That Person Was Ill? No [id number] Information not available 12/18/2019 Have You Been To An Area Known To Be High Risk For COVID-19? No [id number] Information not available 12/18/2019 What Type Of Diet Are You Following? REGULAR [id number] Information not available 12/18/2019 Which Illicit Or Recreational Drugs Have You Used? None [id number] Information not available 12/18/2019 Education 12 Information no t available 01/02/2014 When Did You Quit Smoking? 1-5yearssinc elastcigaret te Information not available 04/29/2020 Live Alone Or With Others? With Others (Chelly), Adopted Son And 2 Cat Information not available 05/06/2022 Do You Take Precautions To Prevent Distracted Driving? Yes Information not available 07/10/2015 How Often Do You Need To Have Someone Help You When You Read Instructions, Pamphlets, Or Other Written Material From Your Doctor Or Pharmacy? Never Information not available 07/10/2015 Have You Served In The ? No [email or web address] Information not available 08/18/2016 Have You Or Anyone In Your Household Had Any Of The Following Symptoms In The Last 14 Days: Sore Throat, Cough, Chills, Body Aches For Unknown Reasons, Shortness Of Breath For Unknown Reasons, Loss Of Smell, Loss Of Taste, Fever At Or Greater Than 100 Degrees Fahrenheit? No Information not available 09/17/2019 Are You Or Anyone In Your Household A Health Care Provider Or Emergency Responder? No Information not available 09/17/2019 To The Best Of Your Knowledge Have You Been In Close Proximity To Any Individual Who Tested Positive For COVID-19? No Information not available 09/17/2019 *AWV ONLY* Are You Presently Prescribed Opioid Medication By PCP Or Specialist? If YES -Provider Assess The Benefit For Other, Non-opioid Pain Therapies Instead, Even If The Patient Does Not Have OUD But Is Possibly At Risk. No Information not available 04/29/2020 Have You Recently Traveled To A COVID-19 High Risk Area Or Gathering In The Last 10 Days? No Information not available 04/29/2020 What Was The Date Of Your Most Recent Tobacco Screening? 05/09/2023 Information not available 05/09/2023 How Many Children Do You Have? 1 Adopted Son [id number] Information not available 12/18/2019 What Is Your Current Pack Years? 20-29packyea rs Information not available 04/29/2020 Do You Use Protection During Sex? No [id number] Information not available 12/18/2019 Seat Belts Used Routinely Yes Information not available 01/02/2014 Are You Sexually Active? Yes [id number] Information not available 12/18/2019 Smoke Alarm In Home Yes Information not available 07/10/2015 At What Age Did You Start Smoking Tobacco? 22 [id number] Information not available 12/18/2019 Are You Passively Exposed To Smoke? Yes [email or web address] Information no t available 08/18/2016 How Much Tobacco Do You Smoke? 0.25 PPD [id number] Information not available 12/18/2019 Do You Use Sunscreen Routinely? Yes [id number] Information not available 12/18/2019 How Many Years Have You Smoked Tobacco? 24 [id number] Information not available 12/18/2019 Sex: Unknown Functional Status Question Answer Note LastModified by Organizat ion Details LastModified Time Do you use any illicit or recreational drugs? No Information not available 05/04/2021 Do you or have you ever used any other forms of tobacco or nicotine? No Information not available 05/04/2021 What is your level of alcohol consumption? None [id number] Information not available 12/18/2019 Do you or have you ever used smokeless tobacco? Never used smokeless tobacco [id number] Information not available 12/18/2019 Are you currently employed? No [id number] Information not available 12/18/2019 Are you able to walk independently without assistance or assistive devices? YESASSIST Information not available 05/09/2023 Are you able to care for yourself independently? Yes Information not available 04/29/2020 Do you or have you ever used e-cigarettes or vape? Never used electronic cigarettes [id number] Information not available 12/18/2019 What is your exercise level? None Information not available 05/09/2023 Mental Status None recorded. Family History Relationship Description Onset Age of this Age Resolved Age Notes LastModified by Organization Details LastModified Time Sister Abdominal aortic aneurysm [email or web address] Not available 07/09 11:30:30 Sister Heart valve disorder [email or web address] Not available 07/09 11:30:30 Sister Coronary arterioscler osis awychowski Not available 05/04 09:55:57 Father Heart disease awychowski Not available 07/09 11:30:30 Father Dementia awychowski Not availab le 07/10/2015 11:30:30 Father Cerebrovascu lar accident awychowski Not available 10:21:46 Mother Cardiac pacemaker in situ awychowski Not available 05/06 09:42:00 Medical History Condition Response Coronary Artery Disease Y Obesity Y High Cholesterol Y Congenital Anomalies Y Thyroid Problems Y Immunizations Vaccine Type Date Status Note Provider Name and Address Organization Details Recorded Time Tdap 016 completed Ernestine garcía [facility] 06/04/2019 10:18:44 Td (adult), 5 Lf tetanus toxoid, preservative free, adsorbed 016 completed Soledad Alarcon MA null, [facility] 05/04/2021 09:22:55 Tdap 008 completed Ernestine Donnelly null, [facility] 06/04/2019 10:18:44 pneumococcal polysaccharide PPV23 011 completed Ernestine Donnelly null, [facility] 06/04/2019 10:18:44 Influenza, split virus, quadrivalent, PF 018 cancelled patient objection Not Available [facility] 03/03/2019 02:22:21 Influenza, split virus, quadrivalent, PF 019 cancelled patient objection Not Available [facility] 03/03/2019 02:22:10 Influenza, split virus, quadrivalent, PF 022 cancelled patient objection Marcus Prieto MD [address], [address], [facility] 11/02/2021 09:17:09 Past Encounters Encounter ID Performer Location Encounter Start Date Encounter Closed Date Diagnosis/Indication Diagnosis SNOMED-CT Code Diagnosis ICD10 Code Diagnosis IMO Codes Diagnosis Note [id number] Marcus Prieto MD Main Office [address] [facility] [address] [place] [address] 09/28/2013 15:10:07 09/28/2013 16:14:26 Pure hypercholesterolemia 517795910 Will reassess fully off of statin. If 10 yr risk is >7.5 will reinitiate . Thyroid fu nction tests abnormal 201675998 Mild TSH elevation without symptoms. Will follow for now. Tobacco de pendence syndrome 72137982 Pt continues to understand /accept potential health consequenc es and has no interest in smoking cessation assistance . [id number] Marcus Prieto MD Main Office [address] [facility] [address] [place] [address] 01/02/2014 13:51:15 01/02/2014 15:24:24 Adult health examination 713873786 Immunizati on status utd, flu declined. Regular dental and ophtho care advised as well as seatbelt and sunscreen use. Distracted driving discussed. Advance directives in place. Pure hypercholesterolemia 984603408 Will follow off of statin. If 10 yr risk is >7.5 will reinitiate . Thrombocyt openic disorder 996205534 Incidental finding on recent labs. Will confirm result. Tobacco de pendence syndrome 69805028 Pt continues to understand /accept potential health consequenc es and has no interest in smoking cessation assistance . Thyroid fu nction tests abnormal 525288455 Mild TSH elevation without symptoms. Will follow for now. Body mass index 25-29 - overweight 644832025 [id number] Marcus Prieto MD Main Office [address] [facility] [address] [place] [address] 07/10/2015 10:31:18 07/10/2015 11:50:07 Adult health examination 207594508 Z00.01 Immunizati on status utd, flu declined. Regular dental and ophtho care advised as well as seat belt and sunscreen use. Distracted driving discussed. Advance directives in place. Body mass index 30+ - obesity 184834820 Z68.30 Pure hypercholesterolemia 474352370 E78.0 Will follow off of statin. If 10 yr risk is >7.5 will reinitiate . Thrombocyt openic disorder 857453485 D69.6 Incidental finding on recent labs. Will confirm result. Thyroid fu nction tests abnormal 434614165 R94.6 Mild TSH elevation without symptoms. Will reassess. Tobacco de pendence syndrome 90613504 F17.290 Pt continues to understand /accept potential health consequenc es and has no interest in smoking cessation assistance . [id number] GERSON Goodman Main Office [address] [facility] [address] [place] [address] 07/31/2015 14:32:55 07/31/2015 15:30:42 Dizziness 811578222 R42 Suspect dehydratio n, + orthostati cs, recommend patient push fluids specifical ly water, he is allowed to have a drink in class so I recommend he cut back on caffeine and increase non-caffei nated beverages- water, gatorade, seltzer, etc. labs re-printed , he will have CMP, TSH, lipids, and CBC done. If sx persist despite pushing fluids please call/ return. Pure hypercholesterolemia 429569560 E78.0 to repeat fasting Thyroid fu nction tests abnormal 680280784 R94.6 to have test repeated [id number] Marcus Prieto MD Main Office [address] [facility] [address] [place] [address] 12/13/2015 09:17:14 12/13/2015 10:03:28 Pure hypercholesterolemia 804384528 E78.00 Well controlled when taking medication . Will resume jeff. Elevated blood-pressure reading without diagnosis of hypertension 639722086 R03.0 Blood pressure in the pre-hypert ensive range. Discussed management of cardiovasc ular risks and strategies to control BP. Laceration of finger 274 225424 S61.211A Healing well. Call with any signs/symp toms on infection. Otherwise local wound care advised. Subclinica l hypothyroidism 84208458 E03.9 Will monitor. Thrombocyt openic disorder 776320918 D69.6 No symotoms and last check was almost normal. Will monitor. [id number] Marcus Prieto MD Main Office [address] [facility] [address] [place] [address] 08/18/2016 09:32:23 08/18/2016 10:35:35 Adult health examination 610536530 Z00.00 Immunizati on status utd, flu advised in the Fall. Regular dental and ophtho care advised as well as seat belt and sunscreen use. Distracted driving discussed. Advance directives in place. Thrombocyt openic disorder 527361649 D69.6 No symotoms and last check was almost normal. Will monitor, and refer to heme if <100 or other cell lines are affected. Subclinica l hypothyroidism 93510797 E03.9 Asymptomat ic, will monitor. Body mass index 30+ - obesity 038078971 Z68.30 Tobacco de pendence syndrome 40097821 F17.290 Pt continues to understand /accept potential health consequenc es and has no interest in smoking cessation assistance at this time. Pure hypercholesterolemia 783460347 E78.00 Will reassess off of meds and discuss tx based on CV risk score. [id number] Magdiel Garcia PA-C Main Office [address] [facility] [address] [place] [address] 08/30/2016 10:13:41 08/30/2016 11:02:03 Contact dermatitis 95623417 L25.9 looks like eczema / contact dermatitis - ? 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 has worsened to include his back - see above for rx [id number] Marcus Prieto MD Main Office [address] [facility] [address] [place] [address] 10/29/2016 10:54:15 10/29/2016 11:50:08 Epigastric pain 63961576 R10.13 need to verify whether gallstones , pancreatit is and aortic disease was or is planning to be evaluated. Chest pain 99627649 R07. 89 Atypical cardiac pain and reportedly has outpt cardiology f/u scheduled with Dr. Newton. Will try to track down records. Pure hypercholesterolemia 100653405 E78.00 Needs reassessme nt after 2 months on meds. WIll titrate dose based on results. [id number] Marcus Prieto MD Main Office [address] [facility] [address] [place] [address] 11/12/2016 08:02:04 11/12/2016 09:06:37 Epigastric pain 61794136 R10.13 Need to track down recent ultrasound report. Continue PPI in case this is gastritis/ esophagiti s related, especially with him now being on ASA. Atypical chest pain 1025 38035 R07.89 Still unclear as to whether this was cardiac, GI or musculoske letal related. Will finish working up the cardiac route and if recurrent or new symptoms develops revisit GI eval need. Cardiovasc ular stress test abnormal 545977507 R94.39 Varying documentat ion between cardiology consult note and discharge summary. Pt will be following with cardiology . Will arrange echo for further reassuranc e that nuclear scan results were artifactua l as well as assess his ascending aorta. Pure hypercholesterolemia 801289125 E78.00 Agree with aggressive cardiovasc ular risk factor management and ASA therapy. Needs reassessme nt after 2 months on meds. WIll titrate dose based on results. Hypothyroidism 29912365 E03.9 Due for f/u since supplement dose titration. [id number] Marcus Prieto MD Main Office [address] [facility] [address] [place] [address] 11/18/2016 12:47:43 11/18/2016 14:02:25 Chest pain 74518612 R07.89 No related to exertion but still otherwise atypical for cardiac etiology. If troponin is negative and NTG does not afford relief will evaluate further with chest CT. Advised to try NSAID in case this is all just a muscular issue. GI etiology also seems less likely given persistenc e on PPI and lack of significan t GI symptoms. [id number] Marcus Prieto MD Main Office [address] [facility] [address] [place] [address] 11/20/2016 09:34:45 11/20/2016 10:51:40 Chest pain 61180764 R07.89 Loosely related to exertion but still otherwise atypical for cardiac etiology. With extensive normal cardiac evaluation . Will reorder chest CT to rule out thoracic vascular disease in light of pt's family history. WIll also reinvigora te GI evaluation to look further into possible spasm or other esophageal conditions . See if TCA help with possible spasm as I am reluctant to try CCB given baseline low BP. [id number] Magdiel Garcia PA-C Main Office [address] [facility] [address] [place] [address] 12/09/2016 15:09:20 12/09/2016 15:58:15 Atypical chest pain 205040542 R07.89 no evidence of ACS - see below Aneurysm o f thoracic aorta 158129892 I71.[address] Schneider (Dr Valdez's office) tomorrow sister had aortic dissection and thoracic aneurysm will fwd today's note to surgeon Pure hypercholesterolemia 191894007 E78.00 cont lipitor as dir Tobacco de pendence syndrome 08825613 F17.200 Pt continues to understand /accept potential health consequenc es and has no interest in smoking cessation assistance . Hypothyroidism 68103764 E03.9 Essential hypertension 06309004 I10 stable bp, cont med as dir Gastroesop hageal reflux disease 935157317 K21.9 cont ppi as dir [id number] Marcus Prieto MD Main Office [address] [facility] [address] [place] [address] 12/27/2016 14:56:09 12/27/2016 16:18:01 Aneurysm of thoracic aorta 331035496 I71.2 4.4cm. Monitoring with CTS. Atypical chest pain 1025 66573 R07.89 Still unclear as to whether this was cardiac, GI or musculoske letal related. Pt understand s need to return to ED if related to exertion or worse. Diffuse sp asm of esophagus 84241596 K22.4 Seen by GI has EGD booked for next Tuesday. TCA seems to be helping. Pure hypercholesterolemia 301093023 E78.00 Agree with aggressive cardiovasc ular risk factor management and ASA therapy. Needs reassessme nt after 2 months on meds. WIll titrate dose based on results. Hypothyroidism 79711488 E03.9 Due for f/u since supplement dose titration. [id number] Dulce Garcia PA-C Main Office [address] [facility] [address] [place] [address] 01/19/2017 15:17:27 01/19/2017 16:08:34 Aneurysm of thoracic aorta 218991094 I71.2 Ostium sec undum type atrial septal defect 294634469 Q21.1 Atypical chest pain 1025 10306 R07.89 Pure hypercholesterolemia 162712959 E78.00 [id number] Marcus Prieto MD Main Office [address] [place] [address] 03/10/2017 13:27:48 03/10/2017 14:36:40 Aneurysm of thoracic aorta 755131329 I71.2 s/p repair. Doing well. Coronary arteriosclerosis 80742505 I25.10 On statin and ASA following CABG. Will assess risk factor control. Atrial fibrillation 4943 6004 I48.91 Audibly in NSR today. Rate well controlled on warfarin. Thrombocyt openic disorder 271903857 D69.6 No symptoms and last check was almost normal. Will monitor, and refer to heme if <100 or other cell lines are affected. Pure hypercholesterolemia 126236092 E78.00 Agree with aggressive cardiovas ular risk factor management and ASA therapy. Needs labs, will titrate statin dose to goal LDL <70. . Hypothyroidism 31800358 E03.9 WIll reassess, titrate dose as indicated and continue to monitor closely on amiodarone . [id number] Marcus Priteo MD Main Office [address] [facility] [address] [place] [address] 05/16/2017 14:36:48 05/16/2017 15:34:04 Atypical chest pain 874761945 R07.89 Still unclear as to whether this is cardiac, GI or musculoske letal related. Possible anxiety component. Pt understand s need to return to ED if related to exertion or worse. Will request and review ED records. Generalize d anxiety disorder 30457474 F41.1 See if SSRI helps. [id number] Marcus Prieto MD Main Office [address] [facility] [address] [facility] [place] [address] 06/08/2017 10:57:19 06/08/2017 12:07:35 Hypothyroidism 63930957 E03.9 WIll reassess and if TSH is still suppressed d/c supplement . Pure hypercholesterolemia 592275158 E78.00 Well controlled on high dose statin. Anxiety 37802836 F41.1 Well controlled /good response to low dose SSRI. WIll continue current dose. Atypical chest pain 1025 65227 R07.89 Pelzer to be related to post op sternal healing. Better with PRN NSAID and anxiety tx. Will track down recent CT surgery note. Impetigo 71595497 L01.00 Arm lesions suspicious for this. Call inb/worse with topical therpay. [id number] GERSON Goodman Main Office [address] [facility] [address] [facility] [place] [place] [address] 06/14/2017 09:43:07 06/14/2017 10:38:13 Headache 26320136 R51 c/o headache and neck pain, he will schedule with dr contreras for f/u of his sx. CT negative. ? pinched nerve. Hypothyroidism 69922670 E03.9 taking meds daily, continue as directed Aneurysm o f thoracic aorta 852194793 I71.2 Atrial fibrillation 4943 6004 I48.91 on coumadin, continue as directed [id number] Marcus Prieto MD Main Office [address] [facility] [address] [place] [address] 06/20/2017 15:12:31 06/20/2017 16:23:01 Contusion of upper arm 20743507 S40.022A Consistent with small resolving hematoma in a pt on warfarin and asa. Advised to call if not continuing to slowly improve or enlarging. Would need imaging then. [id number] Magdiel Garcia PA-C Main Office [address] [facility] [address] [place] [address] 06/28/2017 10:26:39 06/28/2017 11:48:55 Cervical radiculitis 40446628 M54.12 pending see [facility] pain 6.18 and see neuro after meanwhile - rec. scale back tyl 500mg to 1-2 tabs 3x/day, use heating pad as needed, gentle stretching and begin gabapentin [id number] Magdiel Garcia PA-C Main Office [address] [facility] [address] [place] [address] 08/03/2017 14:25:57 08/03/2017 16:04:14 Paroxysmal atrial fibrillation 971517040 I48.0 cont meds as dir by km Mixed anxi ety and depressive disorder 315041748 F41.8 used to see counsellor Cervical radiculitis 110 69948 M54.12 cont f/u c [facility] pain and pending see neuro Chest pain 63342239 R07. 9 chest pain and syncope of unknown origin - in midst of further eval c pain, card, neuro - ? connective tissue d/o - cont f/u c them -- will fill out fmla papers for pt Hypothyroidism 07356480 E03.9 supp was increased ~ 3 wks ago - rec recheck tsh in 2-3 wks Syncope 305873894 R55 see above has had some mildly low bp readings at pain [facility] lately - 105/60 - rec. stay well hydrated to prevent orthostasi s Coronary arteriosclerosis 20368882 I25.10 cont f/u c card Aortic valve disorder 87 63676 I35.9 s/p repair - cont f/u c card [id number] Marcus Prieto MD Main Office [address] [facility] [address] [place] [address] 09/05/2017 09:42:41 09/05/2017 11:17:47 Adult health examination 310207268 Z00.00 Immunizati on status utd, flu advised in the Fall. Regular dental and ophtho care advised as well as seat belt and sunscreen use. Distracted driving discussed. Advance directives in place. Hypothyroidism 71886091 E03.9 WIll reassess following dose titration in June. Likely amiodarone related. Body mass index 30+ - obesity 040665384 Z68.33 Thrombocyt openic disorder 812839977 D69.6 Recent lab work done in ED shows stable counts. Pure hypercholesterolemia 555207322 E78.00 LDL at goal. Continue current regimen. Atrial fibrillation 4943 6004 I48.91 Audibly in NSR today. Rate well controlled on warfarin/a miodarone. Generalize d anxiety disorder 14847571 F41.1 Titrate SSRI to see if helps. [id number] GERSON Goodman Main Office [address] [facility] [address] [facility] [place] [address] 09/27/2017 13:31:24 09/27/2017 14:28:50 Chest pain 71318381 R07.9 resolved. no sx since stopping metoprolol , f/u with cardiology in october Chronic ob structive pulmonary disease 44816914 J44.9 Pure hypercholesterolemia 250990448 E78.00 taking meds as directed Atrial fibrillation 4943 6004 I48.91 on coumadin, continue as directed last INR last week per cardiology INR 1.9. Anxiety 00312676 F41.9 well controlled on current meds. Aortic valve disorder 87 33718 I35.9 s/p repair with 1 way bypass, ASD repair and aneurysm repair. seeing dr Carballo in october in follow-up. [id number] Marcus Prieto MD Main Office [address] [facility] [address] [facility] [place] [address] 10/13/2017 14:59:00 10/13/2017 16:37:06 Hypothyroidism 68130771 E03.9 WIll reassess following dose titration in August. Likely amiodarone related. Anxiety 62811630 F41.1 Fair response to SSRI, still wondering if anxiety is a factor in his chest pain episodes. Will see if anxiolytic PRN helps at all. Clonazepam was initially sent but not available. Will try diazepam. Chest pain at rest 24394 09 R07.9 Will try to address possible anxiety component while cardiology continues to evaluate their possible side of this issue. [id number] Marcus Prieto MD Main Office [address] [facility] [address] [facility] [place] [address] 12/13/2017 09:02:07 12/13/2017 10:24:33 Needs influenza immunization 272934625 Z23 Hypothyroidism 10893414 E03.9 WIll reassess following dose titration in August. Almost certainly amiodarone related. Headache 35957553 R51 Neurology referral has been generated. Will monitor with correction of thyroid disease. Muscle weakness 71215554 M62.81 Screen for statin myopathy and vitd def. Atrial fibrillation 4943 6004 I48.91 Audibly in NSR today. Rate well controlled on warfarin/a miodarone. ? need for amiodarone or other options if thyroid issue remains difficult to control. Has cardiology appt on 12/27. [id number] Marcus Prieto MD Main Office [address] [facility] [address] [place] [address] 12/29/2017 15:09:50 12/29/2017 16:03:59 Headache 43577709 R51 Seen by neuro last week. Will start Topamax and wait for EEG and sleep study results. Between this issue and his chest pain, patient has been unable to RTW. Hypothyroidism 77129098 E03.9 WIll reassess following dose titration in August. Almost certainly amiodarone related. Vitamin D deficiency 347 58357 E55.9 Has started daily supplement . Recheck level in 3-6 monmths. Anxiety 46408389 F41.1 Fair response to SSRI, still wondering if anxiety is a factor in his chest pain episodes. Wants to see a therapist. [id number] Marcus Prieto MD Main Office [address] [facility] [address] [place] [address] 01/19/2018 11:15:53 01/19/2018 12:27:39 Headache 60217914 R51 Following neuro last week. Waiting for sleep study results. Between this and his episodic chest pain, patient has been unable to RTW. Hypothyroidism 77190947 E03.9 Likely related to amiodarone . Fair control, will continue current dose. [id number] Marcus Prieto MD Main Office [address] [facility] [address] [place] [address] 09/21/2018 13:35:53 09/21/2018 14:49:37 Atypical chest pain 916399409 R07.89 Chronic and persistent . Will image spine to rule out possible radiculopa thic component. Vitamin D deficiency 347 55850 E55.9 Has started daily supplement . Due for level recheck. Hypothyroidism 55447932 E03.9 Likely related to amiodarone . Weight loss likely from daily biking. WIll verify euthyroid status. Pure hypercholesterolemia 361298790 E78.00 LDL at goal. Continue current regimen. [id number] Marcus Prieto MD Main Office [address] [place] [address] 11/21/2018 14:38:10 11/21/2018 15:48:56 Atrial fibrillation 07046443 I48.91 Audibly in NSR today. Rate well controlled on warfarin/a miodarone. ? need for amiodarone or other options if thyroid issue remains difficult to control.Wi ll verify cardiology f/u. Pure hypercholesterolemia 804813030 E78.00 LDL at goal. Continue current regimen. Needs infl uenza immunization 930838052 Z23 Hypothyroidism 45945051 E03.9 Likely related to amiodarone . Clinically and biochemica lly euthyroid. Continue current dose. [id number] Marcus Prieto MD Main Office [address] [place] [address] 01/25/2019 10:48:47 01/25/2019 12:34:26 Atrial fibrillation 51986206 I48.91 Pt stable on anticoagul atio and and rate control. Left sided chest pain 28 [address]7797 [address]07[address] Prieto, will try prednisone burst for left sided chest pain ogoing for several weeks and ? inflammato ry in nature. Cannot use nsaids due to anticoagul ation. He is taking gabapentin and could increase if CP not better Syncope 722973065 R55 pt had a negative workup for ACS in the hospital but needs outpatient cardiac evaluation , will try to arrange locally jeff. In the interim if he has any acute sx to call or go back to the ED. Has sleep medicine referral in place and appt set up for [id number] Marcus Prieto MD Main Office [address] [place] [address] 02/08/2019 08:45:47 02/08/2019 09:54:30 Chronic obstructive pulmonary disease 21097017 J44.9 stable, quit smoking 2 yrs ago, stable, no resp sx at this time Left sided chest pain 28 1214633 R07.9 Will try PT , increase gabapentin to tid (from bid dosing using now). Reschedule cardiology appt Recurrent major depression 48988101 F33.9 Increase SSRI to 125 for a week and if no change can go up to 150 mg. Pt will see counselor from [facility] Atrial fibrillation 4943 6004 I48.0 Pt stable on anticoagul ation and and rate control. On coumadin, will do PT on Tuesday [id number] Marcus Prieto MD Main Office [address] [facility] [place] [address] 04/23/2019 10:28:47 04/23/2019 11:58:10 Adult health examination 076899517 Z00.01 Immunizati on status utd, flu declined. Regular dental and ophtho care advised as well as seat belt and sunscreen use. Distracted driving discussed. Advance directives in place. Thrombocyt openic disorder 877066759 D69.6 Recent lab work done in ED shows stable counts. Recurrent major depression 25310506 F33.1 Atrial fibrillation 4943 6004 I48.0 Audibly in NSR today. Rate well controlled on warfarin/a miodarone. Understand s need to f/u with cardiology for amiodarone mgmt. Chronic ob structive pulmonary disease 97803670 J44.9 Based on CXR from December. Pt is asymptomat ic. 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 Will arrange f/u. Vitamin D deficiency 347 80572 E55.9 Has started daily supplement . Due for level recheck. Pure hypercholesterolemia 960080711 E78.00 LDL at goal. Continue current regimen. Anxiety 92773674 F41.1 Fair response to SSRI, still wondering if anxiety is a factor in his chest pain episodes. Wants to see a therapist. Body mass index 30+ - obesity 418664637 E66.9 Z68.36 Screening for malignant neoplasm of colon 113703303 Z12.11 Due for routine screening in August. Hypothyroidism 68455492 E03.9 Likely related to amiodarone . Clinically and biochemica lly euthyroid, but due for f/u labs. Will titrate dose as indicated. Snoring 56251613 R06.83 Sleep study being arranged. [id number] Marcus Prieto MD Main Office [address] [facility] [address] [place] [address] 06/01/2019 10:19:50 06/04/2019 13:37:15 Headache 95848223 R51 Following with neuro last week. Sleep study has been reschedule d to 07/16. Plan is to possibly start TCA, will need ECG if so. Anxiety 68808051 F41.1 Fair response to SSRI, still wondering if anxiety is a factor in his chest pain episodes. Seeing a therapist. Pure hypercholesterolemia 309196160 E78.01 LDL at goal. Continue current regimen. Hypothyroidism 33509822 E03.9 Likely related to amiodarone . Clinically euthyroid, biochemica lly hypo. Reassess labs in a couple of months. [id number] Roxy lewis MD Main Office [address] [address] [place] [address] 09/17/2019 12:42:00 09/17/2019 15:45:05 Cellulitis of face 496413627 L03.[address] Cast. It does not appear to be herpes zoster but more abcess and cellulitis . Will start antibiotic s to cover for MRSA. Nothing to culture at this time. Refer to plastic surgeon to see if I&D would be needed. Appt JEFF. Pt advised ED if worsening. Abscess 634858397 L02.91 as above [id number] Roxy lewis MD Main Office [address] [facility] [address] [place] [address] 09/20/2019 10:29:35 09/20/2019 11:54:38 Cellulitis of face 119035564 L03.211 Unable to get any kind of surgical evaluation . Abcess is better, will continue with warm compresses and allow this to drain, continue antibiotic s. May need surgical evaluation or ED if not continuing to improve. recheck next week. Abscess 414279578 L02.91 as above. Unable to obtain any kind of surgical appt, ED if worse. [id number] Marcus Prieto MD Main Office [address] [facility] [address] [facility] [place] [address] 09/26/2019 09:14:10 09/26/2019 10:43:12 Carbuncle of skin and/or subcutaneous tissue 43765489 L02.93 Resolving but still draining. Will extend treatment for 5 more days. Consider MRSA if recurrent will need further treatment, possible I&D with surgical referral. Long-term current use of anticoagulant 173625800 Z79.01 Anxiety 13266846 F41.1 Fair response to SSRI, still wondering if anxiety is a factor in his chest pain episodes. Seeing a therapist. Hypothyroidism 93858517 E03.9 Likely related to amiodarone . Clinically euthyroid, biochemica lly hypo. Reassess labs in a couple of months. Pure hypercholesterolemia 930085443 E78.01 LDL at goal. Continue current regimen. Due for reassessme nt. Hyperlipidemia 42846165 E78.5 [id number] [facility] [address] [facility] [address] [place] [address] 11/23/2019 12:54:23 11/23/2019 15:06:14 Anxiety 75844388 F41.1 Fair response to current SSRI dose still wondering if anxiety is a factor in his chest pain episodes. Seeing a therapist. PVTA form completed to help mitigate limitation s imposed by this and other health issues. Hypothyroidism 68660599 E03.9 Likely related to amiodarone . Clinically euthyroid, biochemica lly hypo. Reassess labs in a couple of months after dose increase and making sure to take supplement on empty stomach. Hyperlipidemia 71308085 E78.00 Well controlled continue current dose. [id number] Marcus Prieto MD Main Office [address] [facility] [address] [facility] [place] [place] [address] 04/29/2020 13:38:57 04/29/2020 15:33:35 Adult health examination 039213815 Z00.00 Immunizati on status utd, flu declined. Regular dental and ophtho care advised as well as seat belt and sunscreen use. Distracted driving discussed. Advance directives in place. Varicella vaccination 68 084837 Z23 Screening for malignant neoplasm of colon 917339799 Z12.11 Due for routine screening. Hypertensive disorder 38 012905 I10 Has been off of meds, BP low/normal . Will remove diagnosis. Pure hypercholesterolemia 891932654 E78.01 LDL at goal. Continue current regimen. Due for reassessme nt. Anxiety 91877882 F41.1 Fair response to current SSRI suspect anxiety/em ployment are factors in his chest pain episodes. Seeing a therapist. PVTA form completed to help mitigate limitation s imposed by this and other health issues. Thrombocyt openic disorder 931160727 D69.6 Asymptomat ic, need to monitor counts. Recurrent major depression 54633678 F33.1 Atrial fibrillation 4943 6004 I48.0 Audibly in NSR today. Rate well controlled on warfarin/a miodarone. Understand s need to f/u with cardiology for amiodarone mgmt jeff. Chronic ob structive pulmonary disease 65060678 J44.9 Based on CXR from December 2018. Pt is asymptomat ic. Body mass index 30+ - obesity 524618652 E66.01 Z68.39 Screening for malignant neoplasm of prostate 058416584 Z12.5 Hypothyroidism 70066048 E03.9 Likely related to amiodarone . Clinically euthyroid, biochemica lly hypo. Reassess labs jeff, and to take supplement on empty stomach. Pain in left knee 397277 4902 07532 M25.562 ? if related to his h/o meniscus disease. Will ask ortho to help evaluate. Aneurysm o f ascending aorta 104116169 I71.2 Looks like he is overdue for reassessme nt. Needs cardiology follow up on this as well as his amiodarone therapy. Derangemen t of medial meniscus 376380394 M23.309 [id number] Marcus Prieto MD Main Office [address] [facility] [address] [facility] [place], [place] [address] 07/01/2020 10:49:16 07/01/2020 12:18:58 Atrial fibrillation 92463739 I48.0 Audibly in NSR today. Rate well controlled on warfarin/a miodarone. Will request/re view recent cardiology notes. Hypothyroidism 00893626 E03.9 Likely related to amiodarone . Clinically euthyroid, biochemica lly hypo. Had lab work done today. Cervical radiculitis 110 65207 M54.12 Spinal dima nosis in cervical region 67348466 M48.02 Scheduled for cervical ? discectomy /fusion on 07/15. Will request neurosurg notes. [id number] Marcus Prieto MD [facility] [address] [facility] [address] [facility] [place] [address] 08/29/2020 09:22:43 08/29/2020 12:33:24 Spinal stenosis in cervical region 16903554 M48.02 Pt is 4 weeks s/p cervical spine fusion from which he continues to recover and be limited. 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 Has letter from Dr. Hamilton already attesting to his cardiac issues. Aortic valve disorder 87 55969 I35.9 Disability 78123390 Z78. 9 Patient is disabled, at least for the short term, as a result of these conditions . Evicting him from his current living situation without allowing him to recover effectivel y while he and his family continue to search for a new place to live will almost certainly compromise is health and chances to attain correction recovery. Anxiety 71945061 F41.1 On meds following with therapist. Has documentat ion regarding his limitation s as a result of this diagnosis. [id number] Marcus Prieto MD Main Office [address] [place] [address] 05/04/2021 09:13:03 05/04/2021 10:26:29 Adult health examination 129069878 Z00.00 Immunizati on status utd, flu declined. Regular dental and ophtho care advised as well as seat belt and sunscreen use. Distracted driving discussed. Advance directives in place. Varicella vaccination 68 432252 Z23 Anxiety 15799625 F41.1 Symptoms well controlled on meds, will monitor. Has documentat ion regarding his limitation s as a result of this diagnosis. Pure hypercholesterolemia 605283943 E78.01 LDL at goal. Continue current regimen. Due for reassessme nt. Screening for malignant neoplasm of colon 688661877 Z12.11 Due for routine screening. Hepatitis C screening 41 6037335 Z11.59 Hypertensive disorder 38 777005 I10 Has been off of meds, BP low/normal . Will remove diagnosis. Thrombocyt openic disorder 097506457 D69.6 Asymptomat ic, need to monitor counts. Recurrent major depression 24324953 F33.1 Fair control, continue current regimen. Atrial fibrillation 4943 6004 I48.0 Audibly in NSR today. Rate well controlled on warfarin/a miodarone. Understand s need to f/u with cardiology for amiodarone mgmt regularly. Chronic ob structive pulmonary disease 12131342 J44.9 Based on CXR from December 2018. Pt is asymptomat ic. Body mass index 30+ - obesity 487550733 E66.01 Z68.37 Screening for malignant neoplasm of prostate 515400960 Z12.5 Hypothyroidism 26949097 E03.9 Likely related to amiodarone . Clinically euthyroid, biochemica lly hypo. Reassess labs jeff, and to take supplement on empty stomach. 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 Gastroesop hageal reflux disease 049927291 K21.9 Long-term current use of anticoagulant 624062917 Z79.01 On warfarin, monitored via [facility]. Vitamin D deficiency 347 53551 E55.9 Has started daily supplement . Due for level recheck. [id number] Marcus Prieto MD Main Office [address] [facility] [address] [place] [address] 11/02/2021 08:19:10 11/02/2021 09:15:42 Recurrent major depression 64001076 F33.1 Fair control, continue current regimen. Hypothyroidism 35468611 E03.9 Likely related to amiodarone . Clinically euthyroid, biochemica lly hypo. Reassess labs jeff, and to take supplement on empty stomach. Hypercholesterolemia 136 16495 E78.00 Needs infl uenza immunization 314361993 Z23 Long-term current use of anticoagulant 612946512 Z79.01 On warfarin, monitored via [facility]. Screening for malignant neoplasm of colon 387403387 Z12.11 Due for routine screening, pt cancelled out prearrange d appt. Advised to call to reschedule jeff. Atrial fibrillation 4943 6004 I48.0 Audibly in NSR today. Rate well controlled on warfarin/a miodarone. Understand s need to f/u with cardiology for amiodarone mgmt regularly. [id number] Marcus Prieto MD Main Office [address] [facility] [address] [place] [address] 05/06/2022 09:04:09 05/06/2022 10:20:01 Adult health examination 426632056 Z00.00 Immunizati on status utd, flu declined. COVID and Shingrix vaccinatio n advised via local pharmacy. Vaccine effectiven ess and safety conveyed. Regular dental and ophtho care advised as well as seat belt and sunscreen use. Distracted driving discussed. Advance directives in place. Thrombocyt openic disorder 656833092 D69.6 Asymptomat ic, need to monitor counts. Vitamin D deficiency 347 26879 E55.9 Has started daily supplement . Due for level recheck. Body mass index 30+ - obesity 039194756 E66.01 Z68.36 Recurrent major depression 29124645 F33.1 Fair control, continue current regimen. Atrial fibrillation 4943 6004 I48.0 Audibly in NSR today. Rate well controlled on warfarin/a miodarone. Understand s need to f/u with cardiology for amiodarone mgmt regularly. Chronic ob structive pulmonary disease 31324884 J44.9 ? becoming symptomati c or having side effects from amiodarone . May need to try inhalers and involve pulm. Chronic ki dney disease stage 3A 526932419 N18.31 Long-term current use of anticoagulant 008298643 Z79.01 On warfarin, monitored via [facility]. Hypothyroidism 20559940 E03.9 Likely related to amiodarone . Clinically euthyroid, biochemica lly hypo. Reassess labs jeff, and to take supplement on empty stomach. Hyperparathyroidism 6699 9008 E21.3 If still nl will remove diagnosisi . Gastroesop hageal reflux disease 585372718 K21.9 Aortic valve disorder 87 53776 I35.9 Following with cards Loeys-Sahil syndrome 446 765794 Q87.89 Follows with genetics, and cardiology . Due for f/u in July Screening for malignant neoplasm of colon 188186714 Z12.11 Due for routine screening, pt cancelled our prearrange d appt. Advised to call to reschedule jeff. Dyspnea on exertion 6084 5006 R06.09 Depepnding on labs/XR results may need PFT's. Varicella vaccination 68 710349 Z23 [id number] Marcus Prieto MD Main Office [address] [facility] [address] [place] [address] 08/05/2022 10:52:30 08/05/2022 11:38:42 Hyperparathyroidism 45598119 E21.3 Will monitor with vit D deficiency management . Vitamin D deficiency 347 43628 E55.9 Has started daily supplement . Due for level recheck. Pain of le ft knee region 8814775960 22947 M25.562 Will ask ortho to evaluate Hypothyroidism 25937151 E03.9 Likely related to amiodarone . Clinically euthyroid, biochemica lly hypo. Reassess labs jeff, and to take supplement on empty stomach. Atrial fibrillation 4943 6004 I48.0 Audibly in NSR today. Rate well controlled on warfarin/a miodarone. I will ask cardiology to manage amiodarone . [id number] Marcus Prieto MD Main Office [address] [address] [place] [address] 09/06/2022 08:43:07 09/09/2022 13:05:08 [id number] Marcus Prieto MD Main Office [address] [address] [place] [address] 09/14/2022 08:32:07 09/14/2022 09:45:19 Hypercholesterolemia 23268873 E78.00 Refill requested, has been well controlled , will reassess. Migraine 29718449 G43.90 9 Atypical chest pain 1025 15714 R07.89 Recurrent with history of structural heart disease, needs stress testing as recent echo in June was unremarkab le following valve replacemen t. Advised to call me if cardiology is not responding to his requests. Dyspnea 843482373 R06.00 Possible COPD vs fibrosis. CT scan not suggestive but with amiodarone therapy and tobacco use history will see if short course of prednisone helps and ask pulmonary to help evaluate further. [id number] Marcus Prieto MD Main Office [address] [facility] [address] [place] [address] 11/08/2022 11:21:42 11/08/2022 12:43:08 Hyperparathyroidism 12141601 E21.3 Will recheck and if confirmed ask endo to help with evaluation . Migraine 68469552 G43.90 9 Stable, continue current regimen. Neuropathy 773343767 G62 .9 Nocturia 309671520 R35.1 Due for prostate cancer screening. Thrombocyt openic disorder 707083034 D69.6 Asymptomat ic, need to monitor counts. With other comorbidit ies will screen fro autoimmune disease. Thyroid nodule 140571000 E04.1 Will see if u/s characteri zes what I palpated on exam. [id number] SALLY CARRASCO Main Office [address] [facility] [address] [facility] [place] [address] 02/18/2023 12:44:43 02/18/2023 13:32:31 Transition of care 5063489445 105 Z75.8 reviewed hospital documentat ion Cervical radiculopathy 96704089 M54.12 -will refer to PT per pt request-di scussed with pt to continue conservati ve measuremen ts for symptom relief [id number] Marcus Prieto MD Main Office [address] [facility] [address] [facility] [place] [address] 05/09/2023 09:06:57 05/09/2023 10:41:38 Adult health examination 175267101 Z00.00 Flu declined. COVID and Shingrix vaccinatio n advised via local pharmacy. Vaccine effectiven ess and safety conveyed. Regular dental and ophtho care advised as well as seat belt and sunscreen use. Distracted driving discussed. Advance directives in place. Thrombocyt openic disorder 455146184 D69.6 Asymptomat ic, need to monitor counts. With other comorbidit ies will screen fro autoimmune disease. Paroxysmal atrial fibrillation 112387761 I48.0 Remains on amiodarone via [facility]. Advised to schedule appt with Dr. Alfonso aguilar. Chronic ob structive pulmonary disease 02888523 J44.9 On LAMA/LABA combo with good symptom control. No tobacco use since 2017. Impairment of balance 38 5549915 R26.89 Body mass index 30+ - obesity 115423766 E66.9 Z68.36 Recurrent major depression in full remission 06436228 F33.42 Well controlled on current SSRI dose. Continue as is. Long-term current use of anticoagulant 036545655 Z79.01 On warfarin, monitored at [facility] Loeys-Sahil syndrome 446 794287 Q87.89 Follows with genetics, and cardiology . Due for f/u in July Hyperparathyroidism 6699 9008 E21.3 Will monitor with vit D deficiency management . Screening for malignant neoplasm of colon 441253714 Z12.11 Due for routine screening, pt cancelled our prearrange d appt. Advised to call to reschedule jeff. Pt understand s/accepts potential consequenc es to continued deferral. History of aortic valve replacement [id number] 100 Z95.4 On anticoagul ation and monitoring via [facility] Hypothyroidism 33339228 E03.9 Likely related to amiodarone . Clinically euthyroid, biochemica lly hypo. Reassess labs jeff, and to take supplement on empty stomach. Hyperlipidemia 94776615 E78.00 Well controlled continue current statin dose. Vitamin D deficiency 347 62900 E55.9 Will verify adequate supplement dosing. Tobacco de pendence in remission 841234451 F17.[address] in 01/2023 done in ED was negative. Continue yearly screening from that date. Hopefully [facility] will follow through on outreach. [id number] Marcus Prieto MD Main Office [address] [place] [address] 10/24/2023 08:22:20 10/24/2023 09:15:36 Hyperlipidemia 60783846 E78.00 Has been well controlled , will reassess. Continue current statin dose. Coronary arteriosclerosis 35147413 I25.10 On statin and ASA following CABG. Will assess risk factor control. Migraine [id number] G43.90 9 Stable, continue current regimen. Influenza vaccination declined 011683473 Z28.21 Pt understand s potential consequenc es to continued deferral. Hypothyroidism 12260986 E03.9 Likely related to amiodarone . Clinically euthyroid, biochemica lly hypo. Reassess labs jeff, and to take supplement on empty stomach. History of aortic valve replacement [id number] 100 Z95.4 On anticoagul ation and monitoring via [facility]. Has echo and cardiology f/u on 11/06 and 11/07. History of cervical spine fusion [id number] 101 Z98.1 Vitamin D deficiency 347 40162 E55.9 Has started daily supplement . Due for level recheck. Recurrent major depression in full remission 95790018 F33.42 Well controlled on current SSRI dose. Continue as is. Needs BRICE letter for puppy that he is training for support dog [id number] Marcus Prieto MD Telehealt h [address] [facility] [place] [address] 10/05/2024 12:32:08 10/05/2024 15:58:06 Coronary arteriosclerosis 62965584 I25.10 On statin and ASA following CABG. Will assess risk factor control. Pure hypercholesterolemia 480928100 E78.01 LDL at goal. Continue current regimen. Due for reassessme nt. Chronic ob structive pulmonary disease 39923782 J44.9 On LAMA/LABA combo with good symptom control. No tobacco use since 2017. Tobacco de pendence in remission 401020113 F17.[address] in 01/2023 done in ED was negative. Continue yearly screening from that date. Paresthesi a of bilateral hands 701096137 R20.2 [id number] Has history of CTS but no EMG on file. Will scren for possible metabolic contributo rs and try wrist splints. Discuss ENG if persistent /worse to differenti ate b/w CTS and central source given history of cspine surgery. Vitamin D deficiency 347 17327 E55.9 Has started daily supplement . Due for level recheck. Hypothyroidism 04875942 E03.9 Was likely related to amiodarone which was stopped. Will see if supplement is still needed. Long-term current use of anticoagulant 189346058 Z79.01 On warfarin, monitored at [facility] Concerns Section Related Observation LastModified by Organization Detai ls LastModified Time None Recorded Concern Status LastModified by Organization Details LastModified Time None Recorded Advance Directives Directive Y: HCP/-Caryn Spaulding-Leonora Payers Insurance Date Sequence Insurance Name Policy Number Policy [place] Covered Member ID Castle Member ID Guarantor Name 03/01/2024 1 [facility] - DOS PRIOR TO 2022 - DUAL ELIGIBLE (MEDICARE REPLACEMENT/A DVANTAGE - HMO) Tuan sanchez [id number] Tuan Garcia 10/25/2024 1 [facility] - DOS ON OR AFTER 2022 - MEDICARE [place]VANTAGE [place] ([place] REPLACEMENT/A DVANTAGE - PPO) Tuan Menesesjuan jose sanchez [id number] Tuan Shahnazjayoscar 03/01/2024 1 [facility] [id number] Tuan Noriega daniel [id number] Tuan Shahnazgayathriwalker 03/01/2024 1 [facility] (MEDICAID REPLACEMENT - HMO) [id number] Tuan Menesesjuan jose sanchez [id number] Tuan Jose 03/01/2024 1 MED[place]ID-[place]: [facility] Tuan Menesesjuan jose sanchez [id number] Tuan Goddardoscar Notes Date Note Type Note Provider Name and Address Organization Details Recorded Time 11/09/19 23 text/htm l HyperlipidemiaReported by PatientHPIFor type of hyperlipidemia, patient reportscombined. For compliance, patient reportsdoes not exercisebut reportscompliant with diet. For risk factors, patient reportshypertensionandobesity. For control, patient reportsusually well controlledandat goal. For current therapy, patient reportscurrently taking: (atorvastatin),last cholesterol level: (150),last ldl level: (82),last triglyceride level: (170), andlast hdl level: (34). For complications, patient reportsno coronary artery disease,no peripheral artery disease, andno cardiovascular disease.On high dose statin, has not gone for labs in over 1 year. Atrial FibrillationReported by PatientHPIFor severity, patient reportsmild. For associated symptoms, patient reportsno chest discomfort,no dyspnea,no fatigue,no associated dizziness, andno awareness of palpitation.On amiodarone, managed by cardiology. ThyroidReported by PatientHPIFor context, patient reportslow thyroid levels. For duration, patient reportsintermittent. For onset/timing, patient reportsstill presentandintermittent episodes lasting: (hours). For exercise, patient reportsgets exercise. For associated symptoms, patient reportsno cold intoleranceandno heat intolerance.Has been on a levothyroxine. Last TSH level was elevated at 8.89. Still on amiodarone. Marcus Prieto MD [address], [address], [facility] 12/07/2022 08:47:28 02/18/19 24 text/htm l ROS as noted in the HPI Tuan is a 52yr old M who presents for a hospital f/u. PMH of thoracic aneurysm repair and AVR 6yrs ago, CAD, and connective tissue disorder. [facility]: [facility] 02/10/23 Tuan was seen at [facility] for intermittent chest pain for several days- radiates down the left shoulder/arm. Had negative serial troponin and EKGs. CT scan was negative for dissection. Was dx with cervical radiculopathy. As pt did have neck surgery 3yrs ago. Ruled out any red flag symptoms that would suggest cord compression or spinal epidural abscess. There was no CT evidence of an aortic dissection or PE. Tuan presents to the office reporting to be doing well. Is relieved that his cardiac workup came up negative. States the neck pain he is experiencing is minimal. It is constant but does not interfere with his daily activities. No pain to touch or palpation. Denies of any chest pressure or pain, no sob. Pt does follow with a front end software engineer and was started on anoro ellipta inhaler. Paul Rueda MD [address], [place], [address], [facility] 02/22/2023 09:10:32 05/09/19 24 text/htm l Generic HPI TemplateReported by PatientFeels well except for balance and difficulty with ambulation. Here for a physical. Has dental and ophtho appts scheduled.ROS as noted in the HPI Chen garcía, [facility] 05/27/2023 13:46:09 10/24/19 24 text/htm l Musculoskeletal PainReported by PatientHPIFor quality, patient reportsachingandtingling. For severity, patient reportsworsening. For associated symptoms, patient reportsweak limbs. For location, patient reportsbilateral neck. For duration, patient reportspresent for >12 months.Seen by ortho for knee pain since last visit. Knee pain was attributed to OA but additional symptoms were evaluated and ultimately led to a [facility] emergency department MRI which showed severe cervical stenosis and disc disease, and he is now 3 years post op C3/C4 fusion with return of neck pain. HyperlipidemiaReported by PatientHPIFor type of hyperlipidemia, patient reportscombined. For compliance, patient reportsdoes not exercisebut reportscompliant with diet. For control, patient reportsusually well controlledandat goal. For current therapy, patient reportscurrently taking: (atorvastatin),last cholesterol level: (154),last ldl level: (89), andlast triglyceride level: (152). For complications, patient reportsno coronary artery disease,no peripheral artery disease, andno cardiovascular disease.On high dose statin, Due for labs Atrial FibrillationReported by PatientHPIFor severity, patient reportsmild. For associated symptoms, patient reportsno chest discomfort,no dyspnea,no fatigue,no associated dizziness, andno awareness of palpitation.Follows with cardiology for this and post AVR. Anxiety/DepressionReported by PatientHPIFor context, patient reportsmajor life stressors. For quality, patient reportssymptoms improved. For severity, patient reportsdenies suicidal ideations,able to maintain relationships, anddoes not interfere with activities of daily living. For duration, patient reportsfrequentandsymptoms lasting over 2 weeks. For onset/timing, patient reportssuddenandstill present. For associated symptoms, patient reportsno shortness of breath,mood good, andsleeping well.Continues to have paresthesias with walking/exertion. Seems to be doing better with stress since starting SSRI. Has been tolerating SSRI well, has a new puppy that he is certifying as BRICE. ThyroidReported by PatientHPIFor context, patient reportslow thyroid levels. For duration, patient reportsintermittent. For onset/timing, patient reportsstill presentandintermittent episodes lasting: (hours). For exercise, patient reportsgets exercise. For associated symptoms, patient reportsno cold intoleranceandno heat intolerance.Has been on a levothyroxine s Last TSH level was elevated at 4.7. Still on amiodarone. Marcus Prieto MD [address], [address], [facility] 10/24/2023 09:24:13 10/06/19 25 text/htm l Musculoskeletal PainReported by PatientHPIFor quality, patient reportstingling. For associated symptoms, patient reportsweak limbsbut reportsno fever. For location, patient reportsbilateral wristandbilateral hand. For duration, patient reportspresent for 1-6 months. For timing, patient reportsintermittent.Has history of c spine fusion 07/2020. Now with b/l hand pain HyperlipidemiaReported by PatientHPIFor type of hyperlipidemia, patient reportscombined. For compliance, patient reportsdoes not exercisebut reportscompliant with diet. For control, patient reportsusually well controlledandat goal. For current therapy, patient reportscurrently taking: (atorvastatinatorvastin),last cholesterol level: (152),last ldl level: (7583), andlast triglyceride level: (226). For complications, patient reportsno coronary artery disease,no peripheral artery disease, andno cardiovascular disease.On high dose statin, has not gone for labs in almost a year. Atrial FibrillationReported by PatientHPIFor severity, patient reportsmild. For associated symptoms, patient reportsno chest discomfort,no dyspnea,no fatigue,no associated dizziness, andno awareness of palpitation.History of afib, s/p ablation 12/12/[address] Alejandro, and taken off amiodarone. Has not seen me since. Anxiety/DepressionReported by PatientHPIFor context, patient reportsmajor life stressors. For quality, patient reportssymptoms improved. For severity, patient reportsdenies suicidal ideations,able to maintain relationships, anddoes not interfere with activities of daily living. For duration, patient reportsfrequentandsymptoms lasting over 2 weeks. For onset/timing, patient reportssuddenandstill present. For associated symptoms, patient reportsno shortness of breath,mood good, andsleeping well. ThyroidReported by PatientHPIFor context, patient reportslow thyroid levels. For duration, patient reportsintermittent. For onset/timing, patient reportsstill presentandintermittent episodes lasting: (hours). For exercise, patient reportsgets exercise. For associated symptoms, patient reportsno cold intoleranceandno heat intolerance.Has been on a levothyroxine s Last TSH level was elevated at 6.63. DizzinessReported by Patient Marcus Prieto MD [address], [place], [address], [facility] 10/06/2024 13:14:41
== END 2024-12-06 18:51 | disposition home or self-care (01) ==
PROVIDERS: Physician Assistant Medical; Emergency Provider Emergency Medicine; PCP Family Medicine
DX: R07.89 Other chest pain (principal); M25.512 Pain in left shoulder; R06.02 Shortness of breath; Z79.899 Other long term (current) drug therapy
CPT/HCPCS: 36415; 71045; 80053; 83690; 83735; 83880; 84484; 85025; 85379; 85610; 93005; 99283; 99284

== ENCOUNTER → 2024-12-06 15:54 | Outpatient (BNV) | payer OTHER, SELFPAY | PROVIDERS: Emergency Provider Emergency Medicine; PCP Family Medicine; Visit Provider Internal Medicine Cardiovascular Disease | DX: I49.3 Ventricular premature depolarization (principal) | CPT/HCPCS: 93010 ==

== ENCOUNTER → 2024-12-06 16:19 | Outpatient (BNV) | payer OTHER, SELFPAY | PROVIDERS: Emergency Provider Emergency Medicine; PCP Family Medicine; Visit Provider Radiology Diagnostic Radiology | DX: R07.9 Chest pain, unspecified (principal) | CPT/HCPCS: 71045 ==

== ENCOUNTER → 2024-12-29 | Outpatient (REF) | payer OTHER, SELFPAY | LOC: HO.CARD | PROVIDERS: PCP Family Medicine; Visit Provider Internal Medicine Pulmonary Disease | DX: J44.9 Chronic obstructive pulmonary disease, unspecified (principal); R06.09 Other forms of dyspnea; Z87.891 Personal history of nicotine dependence | CPT/HCPCS: 99212 ==

== ENCOUNTER 2025-01-01 10:24 | Outpatient (AMB) | payer OTHER, SELFPAY ==
[2025-01-01 10:28] VITALS: BP 108/58; PULSE 73; O2SAT 99; BMI 31.0
--- NOTE | 2025-01-01 10:28 | MHC.OFFVIS ---
Vital Signs 01/01/25 10:28 Height 6 ft 6 in Weight 268 lb BMI 31.0 BP 108/58 L Blood Pressure Location Lt brachial Position Sitting Pulse 73 Pulse Source Pulse Oximeter Pulse Oximetry (%) 99 Oxygen Delivery Method Room Air Intake Visit Reasons: Atelectasis Allergies amoxicillin (From AUGMENTIN) Allergy (Unknown, Verified 01/01/25 10:36) HIVES clavulanic acid (From AUGMENTIN) Allergy (Unknown, Verified 01/01/25 10:36) HIVES HPI HPI Atelectasis: Details: 54-year-old gentleman, former approximately 20 pack-year smoker, quit 2017 with underlying history of Loyes-Diets syndrome (Marfan's variant) status post repair of aortic aneurysm and replacement of aortic valve in 2017, also AFib on amiodarone previously seen for pulmonary component to his dyspnea, lost to follow-up lost to use, now returns complain worsening dyspnea on exertion associated with chest pressure. Patient has been using Anoro and Combivent with reasonable control of his underlying COPD symptoms. After the last office visit patient had to move his 2D echocardiogram to 02/02/2025. He continues to complain essentially similar symptoms. He denies acute exacerbations. [facility] Social History Patient Tobacco Use Status: Never used Tobacco Review of Systems Const Denies daytime sleepiness, Denies excessive sweating, Denies fatigue, Denies fever(s), Denies lethargy, Denies malaise, Denies night sweats, Denies snoring and Denies weight loss Eyes Denies blurry vision and Denies itchy eyes ENT Denies nasal congestion, Denies post nasal drip, Denies sinus pain, Denies sinus pressure and Denies other ( Thrush) Card Denies chest pain, Denies pedal edema, Denies dyspnea, Reports dyspnea on exertion, Denies orthopnea and Denies paroxysmal nocturnal dyspnea Resp Denies cough, Denies hemoptysis, Denies excessive phlegm production, Denies dyspnea, Reports dyspnea on exertion, Denies snoring and Denies wheezing GI Denies abdominal pain and Denies heartburn Musc Denies myalgias, Denies arthralgias and Denies joint swelling Skin/Breast Denies rash Neuro Denies memory loss and Denies seizure-like activity Psych Denies abnormal sleep pattern, Denies anxiety and Denies memory loss Endo Denies excessive sweating, Denies fatigue and Denies heat intolerance Say/Lymph Denies easy bruising Aller/Immun Denies itchy eyes, Denies seasonal rhinorrhea and Denies wheezing Physical Exam Vital Signs: Last Vital Signs Pulse 73 01/01/25 10:28 BP 108/58 L 01/01/25 10:28 Pulse Ox 99 01/01/25 10:28 Oxygen Delivery Method Room Air 01/01/25 10:28 BMI result Body Mass Index 31.0 Const General: no acute distress and alert Nutritional Appearance: not obese Orientation/consciousness: Other orientation findings ( oriented) HEENT Head: Yes atraumatic Eyes General: appearance normal, both eyes and all related structures Sclerae: sclerae normal EOM: EOMs intact bilaterally Neck Neck: Yes supple Lymphatic: no lymphadenopathy noted Resp Effort & Inspection: normal respiratory effort and no use of accessory muscles Auscultation: clear to auscultation bilaterally Cardio Rate: regular rate Rhythm: regular rhythm Heart sounds: no gallops, no murmurs and no rubs Skin General skin exam: other ( warm) Extrem General: No clubbing, No cyanosis and No edema Assessment & Plan Assessment & Plan (1) COPD (chronic obstructive pulmonary disease): Code(s): J44.9 - Chronic obstructive pulmonary disease, unspecified Category: Medical Plan: Well controlled on current regimen of Anoro and Combivent. Continue current regimen. (2) DO (dyspnea on exertion): Code(s): R06.09 - Other forms of dyspnea Category: Medical Plan: Appears to have significant cardiac component. 2D echocardiogram is pending. Coding Level of Care Code Est Pt Level 4 (87107) Diagnoses COPD (chronic obstructive pulmonary disease) J44.9 DO (dyspnea on exertion) R06.09
== END 2025-01-01 10:59 | disposition home or self-care (01) ==
LOC: HO.HPS 10:24
PROVIDERS: PCP Pediatrics; Visit Provider Internal Medicine Pulmonary Disease
DX: J44.9 Chronic obstructive pulmonary disease, unspecified (principal); R06.09 Other forms of dyspnea
CPT/HCPCS: 99214